=== PATIENT | male | born 1945 | race Caucasian/White ===

== ENCOUNTER 2019-12-27 13:47 | Outpatient (CLI) | payer MEDICARE, BC, SELFPAY ==
--- NOTE | 2019-12-27 13:57 | CT_ITS ---
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 TOTAL EXAM DLP: 773.[address] scans at [facility] use at least one of these dose optimization techniques: automat ed exposure control; mA and/or kV adjustment per patient size (includes targeted exams where dose is matched to clinical indication); or iterative reconstruction. FINDINGS: Chest was scanned 3 mm increments. Contrast was given The supraclavicular area was normal. The thyroid showed no masses. There is no lymphadenopathy seen. The pedicle on the right side at T1 appears to be questionable hypodense but no destructive changes a re noted. The aorta was normal no aneurysms are seen there is calcification of the azygos lymph node. There is calcification of the coronary arteries. The pulmonary arteries were normal bilaterally with no filling defects. The peripheral lung show normal perfusion no masses are seen. The liver appear to be normal. No infiltrating changes no metastatic foci. The gallbladder was normal. Both adrenal glands were normal. CT/CT chest w con* [id number] IMPRESSION: Normal CT of the chest The pedicle on the right at T1 shows loss of mineralization but no other eviden ce to suggest metastatic changes.
--- NOTE | 2019-12-27 13:57 | CT_ITS ---
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 FINDINGS: The tongue shows infiltrating process throughout the tongue. The right side appears to be m ore involvement in the left side in the involvement extends anteriorly also. The submental area was normal there is no lymphadenopathy noted. The paranasal sinuses on the right show a retention cyst. No destructive changes. No definite lymphadenopathy is seen in the maxilla or in the submandibular region. The parotid glands appear to be normal. No infiltrating changes. The submandibular area was normal with no invasive changes seen noted. The parapharyngeal and nasopharyngeal spaces were normal. The prevertebral spaces were normal. No definite lymphadenopathy is seen. The carotid spaces show no lymphadenopathy or invasive changes. The submaxillary glands were normal. The preglottic area and subglottic areas show no masses. The larynx was normal. The pre and post laryngeal spaces were normal with no infiltrating changes noted. The thyroid was normal. No lymphadenopathy surrounding the thyroid. The supraclavicular areas were normal. CT/CT neck w con* [id number] IMPRESSION: Inhomogenous configuration of the tongue probably representing infiltrating processes The remaining neck did not suggest lymphadenopathy are metastatic changes.
[2019-12-27 14:33] LABS: Blood Urea Nitrogen 19 mg/dL (8-23)
[2019-12-27] MEDS: iodixanol 320 mg/mL 100mL Btl IV ×2 (14:46→14:48)
== END 2019-12-27 13:48 | disposition home or self-care (01) ==
LOC: RAD 13:54
PROVIDERS: Visit Provider Radiology Radiation Oncology
DX: C01 Malignant neoplasm of base of tongue (principal)
CPT/HCPCS: 36415; 70491; 71260; 82565; 84520

== ENCOUNTER 2020-01-06 09:40 | Outpatient (CLI) | payer MEDICARE, BC, SELFPAY ==
--- NOTE | 2020-01-06 13:33 | ONCRAD EPV_ITS ---
Radiation Oncology Established Patient Visit Patient: Odilon MR#: [id number] : 1945> Age: 74> Sex: Male> Dictated by: Dr. 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 ID: [id number], Energy: 6X, Dose/Fx (cGy): 200, #Fx: 30 / 30, Dose Correction (cGy): 0, Total Dose (cGy): 6,000, Start Date: 06/26/2017, End Date: 08/08/2017, Elapsed Days: 43 Treatment Site: HN PTV70, Ref. ID: [id number], Energy: 6X, Dose/Fx (cGy): 200, #Fx: 5 / 5, Dose Correction (cGy): 0, Total Dose (cGy): 1,000, Start Date: 08/09/2017, End Date: 08/15/2017, Elapsed Days: 6 Chief Complaint / History of Present Illness: Mr. Uribe underwent chemoradiation for carcinoma of the base of tongue in late 2016 and early 2017. He has been doing well. He has full dentures and teeth have not been an issue. He has moderate dry mouth which he seems to tolerate well. He has minimal residual alteration of taste. He has no difficulty eating and he has no difficulty swallowing. In general he feels well with no change in his performance status. He has had no troublesome pulmonary symptoms or bone pain. Appetite is good. He has been having regular follow-up visits with Dr. Dominguez, but missed his last one due to the COVID-19 problem. He has had negative exams. The patient's says that he has had PET scans in [place] in follow-up. They have been negative. They could not give me the exact date of his last one. Current Medications: Aspirin, bisoprolol Fumarate, famotidine, flomax, folic Acid, gemfibrozil, lisinopril, multivitamin Adults, naprosyn, polyethylene Glycol 3350, proscar, traZODone HCl. Allergies: No Known Allergies Current Complaints / Review of Systems: Constitutional - Complains of mild fatigue. Denies fever and night sweats. Eyes - Complains of blurred vision occasionally. Denies double vision. ENMT - Complains of mouth dryness occasionally. Denies dysphagia, ear pain, stomatitis, altered taste and tinnitus. Neck - Denies neck pain. Integumentary - Denies rash. Cardiovascular - Denies arrhythmias, chest pain and edema. Respiratory - Complains of a mild cough which is chronic. Complains of dyspnea associated with normal activity. Denies hemoptysis and wheezing. Gastrointestinal - Complains of intermittent constipation. Complains of heartburn / dyspepsia. Denies abdominal pain, diarrhea, melena / GI bleeding, nausea and vomiting. Genitourinary (M) - Complains of nocturia gets up about 1 time per night and urgency. Denies dysuria and frequency. Musculoskeletal - Complains of joint pain generalized all over. Denies bone pain and muscle weakness. Neurologic - Denies dizziness and headaches. Endocrine - Denies diabetes and thyroid disease. Hematologic/Lymphatic - Denies tender or enlarged lymph nodes.. Vital Signs: Performed on 01/06/2020 10:18 AM BMI - 32.387 kg/m2 (high), Height - 68.00 in, Weight - 213.0 lbs, Temperature - 97.4 f, Pulse - 53, Respiration - 20, O2 Sat - 95 % (low), Pain - 0 and BP - 147/ 87 mm(hg)(high/). Physical Exam: General: Alert and oriented x 3. No acute distress. HEENT: Normocephalic, atraumatic. Extraocular Movements Intact: Oral cavity is clear without lesions, masses or ulcers. He is edentulous. Mucous membranes are moderately dry. The oropharynx is free of lesions. I did not have a mirror to examine the base of tongue but the anterior portion of the base of tongue was visible with tongue blade evaluation and was negative. The patient was very cooperative with digital exam and I closely palpated the entire base of tongue from side to side down to the vallecula and no mass, tenderness,unusual induration or irregularity was noted. NECK: Supple without supraclavicular or jugular lymphadenopathy. LUNGS: Clear to auscultation bilaterally without rales, rhonchi or wheeze. HEART: Regular rate and rhythm, normal S1 and S2 without murmur, gallop or rub. MUSCULOSKELETAL: No tenderness or percussion pain over the axial skeleton. ABDOMEN: Soft, nontender, nondistended without masses or organomegaly. Bowell sounds are present. Performance Status: KPS: 9/10 Lab: None pending. Pathology: Primary, d70.1 - agranulocytosis secondary to cancer chemotherapy, Diagnosed 08/01/2017 (active) and Primary, c01 - malignant neoplasm of base of tongue, Diagnosed 05/30/2017 (active) stage geovani, t2o, n2b, m0. Imaging: CT of the neck and chest were performed 12/27/2019. The chest is negative. I reviewed those images. The scan of the neck was interpreted as showing an infiltrative process in the base of tongue. No other abnormality was described. I reviewed the scan as well as his previous CTs and the PET that was performed at the time of diagnosis. I cannot see a significant change in the base of tongue myself. Impression: Based on the CT interpretation, Mr. Smith needs further evaluation for local recurrence. I requested that he see Dr. Dominguez. Mrs. Smith said that she would call to make the appointment. I told him another PET scan may be recommended. I requested that a disc of all our imaging at [facility] from the time of diagnosis through the current scans be sent to the hospital in [place] where he has his follow-up PET scans. Mrs. Smith requested that a copy of my note from today be mailed to her. We gave her copies of the recent CT reports today. Signed by: 01/06/2020 1:31:03 PM <<Signature on File>> Time spent with patient: CPT Code: CPT Code:
== END 2020-01-06 09:41 | disposition home or self-care (01) ==
LOC: ONCMED 09:44
PROVIDERS: PCP Family Medicine; Visit Provider Specialist
DX: C01 Malignant neoplasm of base of tongue (principal); D70.1 Agranulocytosis secondary to cancer chemotherapy; I10 Essential (primary) hypertension
CPT/HCPCS: 99213

== ENCOUNTER → 2020-07-14 07:58 | Outpatient (BNVA) | payer MEDICARE, BC, SELFPAY | PROVIDERS: PCP Family Medicine; Visit Provider Urology | DX: R97.20 Elevated prostate specific antigen [PSA] (principal); N13.8 Other obstructive and reflux uropathy; N40.1 Benign prostatic hyperplasia with lower urinary tract symptoms | CPT/HCPCS: 81003; 84153 ==

== ENCOUNTER 2021-02-18 18:55 | Emergency (ER) | payer MEDICARE, BC, SELFPAY ==
[2021-02-18 19:31] VITALS: BMI 32.6
--- NOTE | 2021-02-18 19:39 | XRR_ITS ---
PROCEDURE INFORMATION: Exam: XR Chest Exam date and time: 02/18/2021 7:39 PM Age: 75 years old Clinical indication: Cough and shortness of breath; Patient HX: Cough/sob. History of esophageal cancer. TECHNIQUE: Imaging protocol: XR of the chest. Views: 1 view. COMPARISON: CT chest w con* [id number] 12/27/2019 2:38 PM FINDINGS: Lungs: There are low lung volumes. Otherwise, the lungs are clear. Pleural spaces: Unremarkable. No pleural effusion. No pneumothorax. Heart/Mediastinum: Unremarkable. No cardiomegaly. Bones/joints: Unremarkable. XR/XR chest 1V portable [id number] IMPRESSION: There are low lung volumes. Otherwise, the lungs are clear.
[2021-02-19 00:32] VITALS: BP 184/95; PULSE 62; RESP 18; TEMP 36.9; O2SAT 96
[2021-02-19 01:13] LABS: SARS Covid-2 Antigen Positive (Negative)
--- NOTE | 2021-02-19 01:21 | W.ED.SOB ---
HPI - SOB/Dyspnea General: Chief Complaint: Shortness of Breath/Dyspnea Stated Complaint: COUGH/SOB Time Seen by Provider: 02/19/21 01:20 History of Present Illness: HPI Narrative: Patient is a 75-year-old male that comes to the ED with cough, nasal congestion and some shortness of breath. Symptoms started approximately 3 days ago. He describes his cough is dry nonproductive. He says he has mild shortness of breath but says that is a chronic thing and it has not gotten any worse. Denies any fever, abdominal pain, nausea/vomiting or diarrhea. Patient has gotten both Covid Moderna vaccinations. Associated symptoms: Deny abdominal pain, chest pain, fever(s), nausea, orthopnea, palpitations or vomiting Review of Systems Const: Denies: fever(s), chills or fatigue Eyes: Denies: change in vision or eye discomfort ENMT: Reports: nasal discharge and nasal congestion; Denies: throat pain or odynophagia Card: Denies: chest pain, palpitations, edema, swelling of feet/ankles, dyspnea on exertion or orthopnea Resp: Reports: dyspnea (chronic, no acute change) and non-productive cough; Denies: productive cough GI: Denies: abdominal pain, nausea, vomiting, diarrhea, constipation or hematochezia : Denies: flank pain, difficulty urinating, dysuria or hematuria Musc: Denies: neck pain, back pain or extremity swelling Skin/Breast: Denies: rash or new lesions Neuro: Denies: headache(s), numbness in extremities or weakness in extremities PFS ED PFSH: Medical History BPH loc w urin obs/LUTS Elevated PSA History of throat cancer Surgical History History of back surgery History of carpal tunnel release of both wrists History of varicose vein stripping Hx of appendectomy Hx of arthroscopy of right knee Hx of hemorrhoidectomy Family History Father , AT AGE 87 CAD (coronary artery disease) Mother , AT AGE 91 Cancer COLON Social History Smoking and tobacco status: never smoked Alcohol intake: never Marital status: Current occupational status: retired History of recent travel: No Physical Exam Const: COMMON NORMALS: no acute distress, patient oriented x3, healthy appearing and alert GENERAL APPEARANCE: cooperative and comfortable HENMT: COMMON NORMALS: normocephalic HEAD & SCALP: normocephalic MOUTH: Normal oral and palatal mucosa present THROAT: posterior oropharynx normal and uvula midline Neck/C-Spine: COMMON NORMALS: supple GENERAL: Yes normal visual inspection Resp: COMMON NORMALS: normal respiratory effort, No retractions, No use of accessory muscles and clear to auscultation bilaterally EFFORT & INSPECTION: Yes able to speak in complete sentences, No tachypneic, No respiratory distress and No labored AUSCULTATION: clear to auscultation bilaterally Cardio: COMMON NORMALS: regular rate, regular rhythm, S1 normal heart sound present, S2 normal heart sound present, No gallops present (Cardio), No clicks present (Cardio), No murmurs present (Cardio) and Peripheral pulses 2+ throughout RATE: regular rate RHYTHM: regular rhythm HEART SOUNDS: S1 normal heart sound present and S2 normal heart sound present PERIPHERAL PULSES: Peripheral pulses 2+ throughout GI: COMMON NORMALS: Normal to inspection, nondistended, normoactive bowel sounds present, Soft to palpation, non-tender and no masses PALPATION: Yes Soft to palpation : COMMON NORMALS: Yes no CVA tenderness BLADDER/KIDNEY EXAM: Yes no CVA tenderness Back/Pelvis: COMMON NORMALS: no CVA tenderness Extremity: COMMON NORMALS: normal to inspection Neuro: COMMON NORMALS: patient oriented x3 and moves all extremities SENSORIUM/ORIENTATION: Yes alert Skin: GENERAL SKIN EXAM: dry skin Course Vital Signs: Vital signs: Vital Signs Temperature 98.5 F 02/19/21 00:32 Pulse Rate 62 02/19/21 00:32 Respiratory Rate 18 02/19/21 00:32 Blood Pressure 184/95 02/19/21 00:32 Pulse Oximetry 96 02/19/21 00:32 MDM - SOB/Dyspnea MDM Narrative: Medical decision making narrative: Patient is a 75-year-old male comes to the ED with dry cough and nasal congestion drainage. Patient is fully vaccinated for COVID-19. He has some chronic shortness of breath but denies any acute change in shortness of breath. Vitals are stable patient's O2 saturation is 96% on room air and his respirations are 18. He appears in no acute respiratory distress and his lungs are clear to station bilaterally. COVID-19 test positive. Chest x-ray showed no acute lung findings and no lung consolidation seen. Patient would like to get the BAM infusion treatment and I had him sign the consent form while here in the ED. I placed an order with case management for patient to be set up for outpatient monoclonal antibody infusion treatment. Patient diagnosed with COVID-19 and discharged home. Return to ED precautions given. I told patient that binder caser will contact him to set up his JULIEN infusion appointment. Follow-up with PCP in 7 to 10 days for reevaluation. He was instructed on self quarantine procedure. Patient understood agree with plan. Lab Data: Attestation: I reviewed the patient's lab results. Labs: Lab Results 02/19/21 Range/Units 00:37 SARS-CoV-2 Ag (Rap id) Positive H (Negative) Imaging Data^: CXR: Attestation: I personally reviewed and interpreted this imaging study as follows: My impression: Chest x-ray showed no acute lung findings. Discharge Plan Discharge Patient Disposition: Home Clinical Impression: COVID-19 Condition: Stable Prescriptions: No Action levothyroxine 50 mcg capsule 50 mcg PO DAILY RF: 0 trazodone 150 mg tablet 150 mg PO DAILY RF: 0 tamsulosin 0.4 mg capsule 0.4 mg PO DAILY RF: 0 finasteride 5 mg tablet 5 mg PO DAILY RF: 0 bisoprolol fumarate 5 mg tablet 5 mg PO DAILY RF: 0 gemfibrozil 600 mg tablet 600 mg PO DAILY RF: 0 aspirin 81 mg tablet,delayed release (DR/EC) 81 mg PO DAILY RF: 0 folic acid 1 mg tablet 1 mg PO DAILY RF: 0 multivitamin Tablet 1 tab PO DAILY RF: 0 Discharge Orders: Discharge ED (Routine); Ordered 02/19/21 Ordered By: Jamal Reinoso Referrals: Reshma Feng MD [Primary Care Provider] - Discharge Diet: Regular Discharge Activity: Resume usual activity Patient Instructions: Viral Syndrome (ED) Activity Restrictions/Additional Instructions: Follow-up with medical provider as directed. Case management will be contacting you in the next several days to set up an appointment to get your monoclonal antibody infusion. Continue taking all home medications as previously prescribed. Drink plenty of fluids and stay hydrated and take [id number] Tylenol for any fevers. Return to the ER or your medical provider if condition worsens. Please read and understand discharge instructions. Thank you for choosing [facility] for your healthcare needs today. Please realize this is an emergency room and that we are providing you with a medical screening exam and this may not be complete and all inclusive of all the testing and or work up that you may need to determine your ailment or severity of your illness. It is very important that you follow up as instructed or that you return to the Emergency Department should you have concerns or if your condition changes or worsens in any way. Coding Level of Care Code ED Assistant Toddler Teacher for Bj Campuzano Exam Comprehensive
[2021-02-19 03:00] VITALS: BP 179/91; PULSE 63; RESP 18; O2SAT 96
--- NOTE | 2021-02-22 14:06 | DCPLANNER ---
land development project manager had message to schedule an outpatient monoclonal antibody infusion. land development project manager faxed order to centralized scheduling. land development project manager confirmed with [facility] that the order was received.
== END 2021-02-19 03:02 | disposition home or self-care (01) ==
PROVIDERS: Emergency Medicine; Emergency Provider Physician Assistant; PCP Family Medicine
DX: U07.1 COVID-19 (principal)
CPT/HCPCS: 71045; 87426; 99283

== ENCOUNTER 2021-02-23 07:55 | Outpatient (CLI) | payer MEDICARE, BC, SELFPAY ==
[2021-02-23 08:42] VITALS: BP 144/73; PULSE 58; RESP 14; TEMP 36.9; O2SAT 95
[2021-02-23 09:45] VITALS: BP 130/73; PULSE 55; RESP 16; TEMP 36.9; O2SAT 96
[2021-02-23 10:27] VITALS: BP 138/78; PULSE 56; RESP 16; TEMP 36.7; O2SAT 95
== END 2021-02-23 15:50 | disposition home or self-care (01) ==
PROVIDERS: PCP Family Medicine; Visit Provider Nurse Practitioner Family
DX: U07.1 COVID-19 (principal)
CPT/HCPCS: 96365

== ENCOUNTER 2021-08-13 06:00 | Outpatient (RCR) | payer OTHER, SELFPAY | END 2021-08-23 23:59 | disposition home or self-care (01) | LOC: TPT 06:00 | PROVIDERS: PCP Family Medicine; Referring Provider Physician Assistant; Visit Provider Physician Assistant | DX: M25.561 Pain in right knee (principal) | CPT/HCPCS: 97110; 97163 ==

== ENCOUNTER 2021-08-24 06:00 | Outpatient (RCR) | payer OTHER, SELFPAY | END 2021-09-20 23:59 | disposition home or self-care (01) | LOC: TPT 06:00 | PROVIDERS: PCP Family Medicine; Referring Provider Physician Assistant; Visit Provider Physician Assistant | DX: M25.551 Pain in right hip (principal) | CPT/HCPCS: 97110 ==

== ENCOUNTER 2021-09-21 06:00 | Outpatient (RCR) | payer OTHER, SELFPAY | END 2021-10-07 23:59 | disposition home or self-care (01) | LOC: TPT 06:00 | PROVIDERS: PCP Family Medicine; Referring Provider Physician Assistant; Visit Provider Physician Assistant | DX: M25.561 Pain in right knee (principal) | CPT/HCPCS: 97110 ==

== ENCOUNTER → 2021-11-02 14:04 | Outpatient (BNVA) | payer OTHER, SELFPAY | PROVIDERS: PCP Family Medicine; Referring Provider Physician Assistant; Visit Provider Orthopaedic Surgery | DX: M17.11 Unilateral primary osteoarthritis, right knee (principal) | CPT/HCPCS: 73560; 73565; 99203; 99204 ==

== ENCOUNTER → 2021-11-09 11:50 | Day surgery (SDC) | payer OTHER, SELFPAY | PROVIDERS: PCP Family Medicine; Visit Provider Orthopaedic Surgery | DX: Z01.818 Encounter for other preprocedural examination (principal) | CPT/HCPCS: 93005 ==

== ENCOUNTER 2021-11-15 09:09 | Observation (INO) | payer OTHER, SELFPAY ==
[2021-11-09 11:47] VITALS: BMI 32.6
--- NOTE | 2021-11-09 11:50 | ECG_ITS ---
[facility] Test Date: 2021-11-09 Pat Name: Bryan Smith Department: Room: Gender: Male Feed Research Aide: : 1945 Requested By: Laron Dhaliwal Order Number: [id number] Kai MD: Joseluis Gomez M.D. Measurements Intervals [place] Rate: 44 P: 71 NV: 230 QRS: 19 QRSD: 93 T: 64 QT: 429 QTc: 368 Interpretive Statements SINUS BRADYCARDIA WITH MARKED SINUS ARRHYTHMIA WITH FIRST DEGREE AV BLOCK No previous ECG available for comparison Electronically Signed On 11-10-2021 22:35:43 CDT by Joseluis Gomez M.D. [id number]
--- NOTE | 2021-11-09 13:41 | ANES.PREANE2 ---
Pre-Anesthetic Assessment Height/Weight: Height 1.73 m Weight 97.522 kg Operation Date: 11/15/21 07:00 Proposed Procedures p Right Total Knee Arthroplasty 59576/m17.11(Right) - Mitchell Glynn MD Familial anesthetic complications: None Was Beta Nara taken within 24 hours: Yes Was Clonidine taken within 24 hours: N/A Social No alcohol and No tobacco Exam alert, oriented x 3, clear to auscultation bilaterally and regular rate & rhythm Airway Submandibular: within normal limits Cervical ROM: within normal limits Mallampati: Class II Dentition: false CV/HEM Hypertension and Murmur GI Gastroesophageal Reflux Disease Metabolic Thyroid Disease Anesthetic Plan ASA status: 3 Anesthesia: Regional (specify below) (SAB with adductor blk) Medications/Allergies Home Medications Medication Instructions Recorded Confirmed Last Taken Type aspirin 81 mg tablet,delayed 81 mg PO DAILY 07/14/20 11/09/21 11/03/21 History release bisoprolol fumarate 5 mg tablet 10 mg PO DAILY 07/14/20 11/09/21 11/09/21 07:00 History finasteride 5 mg tablet (Proscar) 5 mg PO DAILY 07/14/20 11/09/21 11/08/21 20:00 History folic acid 1 mg tablet 1 mg PO DAILY 07/14/20 11/09/21 11/09/21 07:00 History gemfibrozil 600 mg tablet (Lopid) 600 mg PO DAILY 07/14/20 11/09/21 11/09/21 07:00 History multivitamin 1 tab PO DAILY 07/14/20 11/09/21 11/09/21 07:00 History tamsulosin 0.4 mg capsule 0.4 mg PO DAILY 07/14/20 11/09/21 11/08/21 20:00 History trazodone 150 mg tablet 150 mg PO DAILY 07/14/20 11/09/21 11/08/21 20:00 History levothyroxine 50 mcg capsule 75 mcg PO DAILY cap 02/19/21 11/09/21 11/09/21 07:00 History gabapentin 600 mg tablet 600 mg PO BID 11/09/21 11/09/21 11/09/21 07:00 History naproxen 500 mg PO PRN 11/09/21 11/09/21 11/05/21 History Allergies Allergy/AdvReac Type Severity Reaction Status Date / Time No Known Allergies Allergy Verified 11/02/21 14:34 PENDING SALE TO [facility] Anesthesia Medical History BPH loc w urin obs/LUTS Elevated PSA History of throat cancer Surgical History History of back surgery History of carpal tunnel release of both wrists History of varicose vein stripping Hx of appendectomy Hx of arthroscopy of right knee Hx of hemorrhoidectomy Family History Father , AT AGE 87 CAD (coronary artery disease) Mother , AT AGE 91 Cancer COLON Social History Smoking and tobacco status: never smoked Alcohol intake: never Marital status: Current occupational status: retired History of recent travel: No Data Anesthesia Cardiac Studies: No Data to Display
[2021-11-15] VITALS (19 sets, daily range): BP systolic 81–155; BP diastolic 44–88; PULSE 65–90; RESP 14–20; TEMP 36.2–36.9; O2SAT 90–99
[2021-11-15] MEDS: oxyCODONE 20 mg ER (12 HR) Tablet PO (05:54)
[2021-11-15] MEDS: CELEcoxib 200 mg Capsule 400 MG PO (05:55)
[2021-11-15] MEDS: gabapentin 300 mg Capsule PO (05:55)
[2021-11-15] MEDS: acetaminophen 500 mg Tablet 1000 MG PO ×3 (05:55→21:04)
[2021-11-15] MEDS: sodium chloride 0.9% 1,000 ML 30 ML IV (05:57)
--- NOTE | 2021-11-15 06:51 | P.ANESUD_ITS ---
Pre-Anesthetic Update Pre-Anesthetic Assessment: Date of Surgery/Procedure: 11/15/21 Preop Chelle gnosis: Osteoarthritis Right knee Proposed Procedure: Operation Date: 11/15/21 07:00 Proposed Procedures p Right Total Knee Arthroplasty 53569/m17.11(Right) - Mitchell Glynn MD Any changes to Pre-Anesthetic Assessment?: No Last Intake: Intake Last Liquid Date 11/14/21 Last Liquid Time 19:30 Last Solid Date 11/14/21 Last Solid Time 19:30 Vitals: Temperature 97.7 F 11/15/21 05:41 Temperature Source Temporal Artery S can 11/15/21 05:41 Pulse Rate 65 11/15/21 05:41 Pulse Rhythm 11/15/21 05:41 Pulse Strength 3+ Normal 11/15/21 05:41 Respiratory Rate 18 11/15/21 05:41 Blood Pressure 155/82 11/15/21 05:41 Blood Pressure Lela n 106 11/15/21 05:41 Pulse Oximetry 95 11/15/21 05:41 Oxygen Delivery Me thod 11/15/21 05:41 Exam: Pre-Anes Outpt Exam: alert, oriented x 3, clear to auscultation bi laterally and regular rate & rhythm Cardiac Studies: No Data to Display
--- NOTE | 2021-11-15 06:51 | ANES.PROC ---
Anesthesia Procedures Procedure/Date: 11/15/21 Nerve Block ^: Nerve Block 1: Main Anesthesia: spinal anesthesia block Time Out Performed: Yes Consent: requested by attending/covering physician, from patient, from other, risks and benefits reviewed and patient agrees to proceed Nerve block location: adductor canal (R) Anesthesia monitors applied: pulse oximetry, EKG, BP cuff and oxygen Nerve block position: supine Anesthetic Used: ropivicaine 0.5% (30) and with decadron (4 mg) Nerve Stimulator Used?: No Interscalene/Femoral BLK: 4 stimuplex 21 g needle used for position and inplane approach, visualize local anesthetic spread and no vascular puncture identified Injection: neg aspiration of heme and paresthesia +/- Patient Tolerated Procedure: well and no complications Complications: none
--- NOTE | 2021-11-15 07:02 | W.PM.OPSFHP ---
Same Day Surgery H&P Indication for Procedure/HPI DATE OF PROCEDURE: November 15, 2021 CHIEF COMPLAINT/INDICATIONFOR SURGICAL PROCEDURE: Osteoarthritis right knee here for right total knee arthroplasty PREOP DIAGNOSIS: Osteoarthritis Right knee PLANNED PROCEDURE: Operation Date: 11/15/21 07:00 Proposed Procedures p Right Total Knee Arthroplasty 86206/m17.11(Right) - Mitchell Glynn MD 75-year has failed oral anti-inflammatories multiple arthroscopies. Persistent pain and functional limitations. Here for right total knee arthroplasty Medications/Allergies* Home Medications Medication Instructions Recorded Confirmed Type aspirin 81 mg tablet,delayed 81 mg PO DAILY 07/14/20 11/09/21 History release bisoprolol fumarate 5 mg tablet 10 mg PO DAILY 07/14/20 11/09/21 History finasteride 5 mg tablet (Proscar) 5 mg PO DAILY 07/14/20 11/09/21 History folic acid 1 mg tablet 1 mg PO DAILY 07/14/20 11/09/21 History gemfibrozil 600 mg tablet (Lopid) 600 mg PO DAILY 07/14/20 11/09/21 History multivitamin 1 tab PO DAILY 07/14/20 11/09/21 History tamsulosin 0.4 mg capsule 0.4 mg PO DAILY 07/14/20 11/09/21 History trazodone 150 mg tablet 150 mg PO DAILY 07/14/20 11/09/21 History levothyroxine 50 mcg capsule 75 mcg PO DAILY cap 02/19/21 11/09/21 History gabapentin 600 mg tablet 600 mg PO BID 11/09/21 11/09/21 History naproxen 500 mg PO PRN 11/09/21 11/09/21 History Allergies/Adverse Reactions Allergy/AdvReac Type Severity Reaction Status Date / Time No Known Allergies Allergy Verified 11/02/21 14:34 Current Medications: Generic Name Dose Route Start Last Admin Trade Name Freq PRN Reason Stop Dose Admin Sodium Chloride 1,000 mls @ 30 mls/hr 11/15/21 05:45 11/15/21 05:57 Sodium Chloride 0.9% IV 11/16/21 05:44 30 mls/hr .Q24H KITTY Administration Pertinent History/Comorbid Conditions* Medical History (Updated 02/19/21 @ 02:23 by MONISHA Sethi) BPH loc w urin obs/LUTS Elevated PSA History of throat cancer Surgical History (Updated 07/14/20 @ 08:32 by Ann Leal APRN) History of back surgery History of carpal tunnel release of both wrists History of varicose vein stripping Hx of appendectomy Hx of arthroscopy of right knee Hx of hemorrhoidectomy Family History (Updated 07/06/20 @ 12:15 by Viola Miguel, NGOC) Father, AT AGE 87 Mother, AT AGE 91 CAD (coronary artery disease) Father Cancer Mother COLON Social History Smoking and tobacco status: never smoked Alcohol intake: never Marital status: Current occupational status: retired History of recent travel: No Pertinent Exam Findings alert, oriented x 3, clear to auscultation bilaterally, regular rate & rhythm and operative site marked Recommendations Surgery/Procedure today Coding Level of Care Code Acute Outdoor Guide for Bj Campuzano
[2021-11-15] MEDS: tranexamic acid 1,000 mg/10mL SDV 1000 MG IV (07:30)
[2021-11-15] MEDS: EPINEPHrine 1 mg/mL INJ XX (07:48)
[2021-11-15] MEDS: tranexamic acid 1,000 mg/10mL SDV 1000 MG XX (07:49)
[2021-11-15] MEDS: ketorolac 30 mg/mL INJ XX (07:49)
--- NOTE | 2021-11-15 09:01 | XR_ITS ---
WS: [id number] Right knee, AP and lateral views, 11/15/2021 Clinical Data: verify needle tip not in knee Comparison: AP both knees, 11/02/2021. Findings: The right knee arthroplasty is in good position. There is air in the joint space from surgery. XR/XR knee RT 1-2V 42497 Impression: Right knee arthroplasty.
--- NOTE | 2021-11-15 09:05 | P.OP_ITS ---
Operative Report Date of procedure: November 15, 2021 Pre-op diagnosis: Preop Diagnosis Osteoarthritis Right knee Post-op diagnosis: same Post-op diagnosis: Same Post-op findings: Same Procedure done: Right total knee arthroplasty Implants: Elías total knee arthroplasty components were used includin) Size 6 triathalon cruciate retaining femoral component 2) Size 7 Tritanium tibial component 3) 38 mm /11 mm thickness Tritanium asymetric patella 4) Size 7/9 mm thickness CR tibial bearing insert Pathology: none sent Surgeon: Mitchell Glynn Anesthesia: Nerve Block (Spinal, adductor canal block) Estimated blood loss (mL): 100 Findings: Bryan Adams had eburnated bone over his medial femoral condyle medial tibial plateau and patella Condition: stable Disposition: PACU Procedure: The patient was taken to the operating room. Patient was given 1 g of tranexamic acid . The above anesthesia provided by the anesthesia service. A timeout was performed. The patient was prepped and draped in the usual fashion with the lower extremity exposed. A anterior incision was made, midline, from a point proximal to the patella to the distal tibial tubercle. The knee was entered through a medial parapatellar approach. The patella could be displaced laterally and the knee flexed. The patellar fat pad was resected to provide better visibility. Retractors were placed medially and laterally adjacent to the tibial plateau. The femoral canal was drilled in line with the longitudinal axis of the femur. Intramedullary femoral guide for used to make a distal femoral cut in 5 degrees of valgus, resecting 8 mm from the more prominent condyle. Next the extra medullary tibial guide was placed in alignment with the longitudinal axis of the tibia. The cutting guides were set to remove just over 9 mm from the high tibial plateau. The proximal tibia was then cut. The femoral measuring guide was then placed over the distal femur. Rotation was verified checking the relationship of the guide to the condyle and the trochlear groove. The femur was measured and cut for the desired femoral component. The desired tibial baseplate was then chosen. A trial reduction with the femur tibial baseplate and polyethylene was done, assuring that the knee was stable throughout full motion. Ligament balancing involved nothing more than released the deep medial collateral ligament.The tibia was prepared for the tibial baseplate. Patellar thickness was then measured. The patella was cut removing articular cartilage and prepared for appropriate size patellar button. surfaces were cleaned with a gentamicin solution. The femur tibia and patella were then press- fit into place. The posterior capsule and collateral ligaments were then injected with a solution of 100 mL of 0.2% ropivacaine, 1 mL of a 1:1000 epinephrine solution, 30 mg of Toradol, and 1 g of tranexamic acid. Final polyethylene component was then snapped into place into the tibia. The extensor retinaculum was closed with a running 1 Stratafix interrupted 1 Ethibond. The subcutaneous tissues were closed with 2-0 Vicryl and the skin was closed with a running 4-0 Stratafix. The wound was covered with a Dermabond Prineo dressing. It was covered with 4xrs and a compressive Tubigauze was applied. The patient was taken to recovery room in stable condition.
--- NOTE | 2021-11-15 09:37 | SUR.PHASEI ---
0921 foot pump to left foot. pump on and working
[2021-11-15] MEDS: sodium chloride 0.9% 1,000 ML 100 ML IV ×2 (10:55→21:03)
--- NOTE | 2021-11-15 14:44 | ANE.PACU2 ---
Inpatient post-anesthesia follow up: Airway intact: Yes Vital signs: Temperature 97.5 F Pulse Rate 81 Respiratory Rate 16 Blood Pressure 121/63 Pulse Oximetry 95 Oxygen Delivery Me thod Nasal Cannula Oxygen Flow Rate 2 Fraction of Inspir ed Oxygen Hydration adequate: Yes Nausea and vomiting: No Pain level: 2 Mental status: Baseline
--- NOTE | 2021-11-15 17:20 | PM.PN ---
Subjective Subjective: Minimal pain. Good p.o. intake Vitals/I&O/Wt Last Vital Signs Temp 97.5 F L 11/15/21 13:10 Pulse 81 11/15/21 13:10 Resp 16 11/15/21 13:10 BP 121/63 11/15/21 13:10 Pulse Ox 95 11/15/21 13:10 11/15/21 11/15/21 11/15/21 06:59 14:59 22:59 Intake Total 2940 / 2940 Output Total 200 / 200 Balance 2740 / 2740 Weight last 48 hrs Weight 215 lb Physical Exam Narrative: Right knee dressing clean and dry. Will fire tibialis anterior and toe extensors but unable to dorsiflex against gravity Urinary Catheter Management: Nguyễn: Cath Placed During This Visit: yes Urinary Catheter Date of Insertion: 11/15/21 Urinary Catheter Time of Insertion: 07:20 A&P Assessment and plan (1) Status post right knee replacement: Continue to mobilize with therapy Status: Acute (2) Right peroneal nerve palsy: Patient has a previous history of foot drop after wearing a tight knee pad. I instructed him to avoid compression about knee. I anticipate this should improve as it did in the past. Status: Acute Attestations Medical Necessity Statement*: Anticipate discharge in am. Coding Level of Care Code Acute Lens Block Gauger for Bj Campuzano Diagnoses Status post right knee replacement Z96.651 Right peroneal nerve palsy G57.31
[2021-11-15] MEDS: gabapentin 300 mg Capsule 600 MG PO (17:45)
[2021-11-15] MEDS: CELEcoxib 200 mg Capsule PO (17:45)
[2021-11-15] MEDS: oxyCODONE 5 mg IR Tab/Cap PO (23:33)
[2021-11-16] VITALS: BP 129/69; PULSE 83; RESP 17; TEMP 37.1; O2SAT 91
[2021-11-16 02:46] LABS: Hemoglobin 11.6 g/dL (11.7-16.6)
[2021-11-16 04:00] VITALS: BP 130/71; PULSE 78; RESP 16; TEMP 36.8; O2SAT 94
[2021-11-16] MEDS: acetaminophen 500 mg Tablet 1000 MG PO (05:54)
[2021-11-16] MEDS: CELEcoxib 200 mg Capsule PO (05:54)
[2021-11-16 06:29] VITALS: RESP 16
[2021-11-16] MEDS: oxyCODONE 5 mg IR Tab/Cap PO ×2 (06:29→10:05)
[2021-11-16 07:16] VITALS: BP 166/92; PULSE 72; RESP 18; TEMP 37; O2SAT 95
--- NOTE | 2021-11-16 07:44 | PM.DCS ---
Discharge Providers Date of Admission: 11/15/21 09:09 Date of Discharge: November 16, 2021 Attending Provider at Admission: Mitchell Boyer MD Attending Provider at Discharge: Mitchell Boyer MD Primary Care Provider: Reshma Feng MD Diagnoses at Discharge Discharge Diagnosis (1) Status post right knee replacement: Status: Acute (2) Right peroneal nerve palsy: Status: Resolved (3) Degenerative arthritis of right knee: Status: Resolved Reason for Visit Reason for Visit: primary osteoarthritis of right knee Hospital Course Hospital Course The patient tolerated surgery well. They remained hemodynamically stable. They was begun on aspirin and comes for DVT prophylaxis. The patient was mobilized with therapy beginning the day of surgery and by the first postoperative day independent with the walker. The evening of the operation and he was noted to have weakness in the peroneal nerve distribution but by the following day of this and returned to normal. As the pain was adequately controlled and they were fully mobile they were discharged home. Physical Exam Narrative: On the day of discharge the knee incision was clean. They had no drainage. There is minimal swelling in the thigh and knee and the calf. No distal neurovascular deficits were noted Urinary Catheter Management: Nguyễn: Cath Placed During This Visit: yes, but has since been removed by the nurse Reason for Continuing Indwelling Catheter: Perioperative Use in Selected Surgeries Urinary Catheter Date of Insertion: 11/15/21 Urinary Catheter Time of Insertion: 07:20 Date Urinary Catheter Removed: 11/16/21 Time Urinary Catheter Discontinued: 05:50 Discharge Data Studies Completed and Pending Completed Studies During Hospitalization Category Date Time Status XR knee RT 1-2V 47104 Urgent Exams 11/15/21 09:01 Completed Radiology Impressions Knee X-Ray 11/15/21 09:01 Impression: Right knee arthroplasty. Laboratory Results Hgb 11.6 g/dL (11.7-16.6) L 11/16/21 02:29 Vitals Last Vital Signs Temp 98.6 F 11/16/21 07:16 Pulse 72 11/16/21 07:16 Resp 18 11/16/21 07:16 BP 166/92 11/16/21 07:16 Pulse Ox 95 11/16/21 07:16 Discharge Plan Discharge Patient Disposition: Home Condition: Stable Prescriptions: New oxycodone 5 mg Tablet 5 mg PO Q4H PRN (Reason: Moderate Pain) 7 Days Qty: 30 0RF acetaminophen 500 mg Tablet 1,000 mg PO Q8H 14 Days Qty: 84 0RF celecoxib 200 mg Capsule 200 mg PO Q12H 14 Days Qty: 28 0RF Continued trazodone 150 mg tablet 150 mg PO DAILY 0RF tamsulosin 0.4 mg capsule 0.4 mg PO DAILY 0RF finasteride [Proscar] 5 mg tablet 5 mg PO DAILY 0RF bisoprolol fumarate 5 mg tablet 10 mg PO DAILY 0RF gemfibrozil [Lopid] 600 mg tablet 600 mg PO DAILY 0RF aspirin 81 mg tablet,delayed release (DR/EC) 81 mg PO DAILY 0RF folic acid 1 mg tablet 1 mg PO DAILY 0RF multivitamin Tablet 1 tab PO DAILY 0RF levothyroxine 50 mcg capsule 75 mcg PO DAILY 0RF gabapentin 600 mg Tablet 600 mg PO BID 0RF Discontinued naproxen 500 mg PO PRN 0RF Discharge Orders: Discharge Order (Routine); Ordered 11/16/21 Ordered By: Mitchell Boyer Other Ambulatory Orders: DME: David (Order) Location: None Selected Ordered By: Mitchell Boyer Referrals: Mitchell Boyer MD [Physician] - 11/19/21 8:00 am Discharge Diet: Advance as tolerated Discharge Activity: Limit activity as instructed Patient Instructions: Opioid Safety Activity Restrictions/Additional Instructions: Okay to shower Keep Tubigauze sleeve in place for swelling. Okay to remove for hygiene. Apply FirstIce up to 20 min/hr for pain and swelling Take Celebrex twice a day for the next 15 days for pain , discontinue other anti-inflammatories Take Tylenol 500mg (2 tabs) as needed 3 times a day for mild pain take oxycodone for breakthrough pain. Exercises per physical therapy. May weight-bear as tolerated on total knee arthroplasty IF HAVE ANY PROBLEMS OR QUESTIONS CALL [facility] TECH AT AND ASK TO HAVE DR. BOYER PAGED. Discharge Attestations Time Spent in Discharge Care*: other Quality Metrics Clinical Quality Measures [ No reported AMI, CVA or VTE this stay] Coding Level of Care Code Acute g FW [place] note Diagnoses Status post right knee replacement Z96.651 Right peroneal nerve palsy G57.31 Degenerative arthritis of right knee M17.11
--- NOTE | 2021-11-16 08:46 | PC.CHAP ---
Pastoral Care Encounter/Spiritual Assessment Type of Contact [] Declined machine etcher visit [] Patient/Family/Request visit [] Outpatient visit [] Follow-up visit [] Physician referral [] Code/Alert [x] Routine visit [] Staff referral [] Actively dying [] Patient sleeping [] Family support [] [] Out of room [] Palliative care [] [] Receiving care in room [] Pre-surgical visit [] Trauma [] Long length of stay [] ICU visit [] Other: Relational/Emotional Strength [x] Patient feels connected with others/family/visitors/staff [] Distress [] Loneliness/isolation [] Abandonment Spirituality of Patient [x] Person of Prerna [x] Attends Gnosticist of their Prerna [x] Believes in Prayer [] Reads Bible or Sabianist materials [] There are Spiritual issues to be addressed Grain Receiver Interventions [] Prayer [x] Active listening [x] Non-anxious presence [x] Spiritual/emotional support [] Crisis/trauma care [] Spiritual counseling [] Bereavement support [] Provided bereavement packet [] Provided Bible/devotional materials [] Provided toy/stuffed animal, coloring book to patient or family member [] Provided Communion [] Anointing/[place] [] Salvation [x] Completed spiritual assessment [] Other: Impact on Illness or Injury [] Angry [] Fearful [] Anxious [] Often cries [] Exhaustion [] Unable to work [] Unable to attend faith [] Unable to walk/stand [] Unable to read [] Unable to drive [] Unable to eat/drink [] Unable to sleep [] Unable to be with family [] Patient intubated [] Other: Summary Pt is expecting to be released in the next hour or so. He had surgery yesterday and is being discharged today. He resides in [facility]. While visiting with him, his called. She was leaving home to come to hospital to pick him up. Time spent with patient 10m
[2021-11-16] MEDS: gemfibrozil 600 mg Tablet PO (09:19)
[2021-11-16] MEDS: gabapentin 300 mg Capsule 600 MG PO (09:19)
[2021-11-16] MEDS: tamsulosin 0.4 mg Capsule PO (09:19)
[2021-11-16] MEDS: aspirin 81 mg EC Tablet PO (09:19)
[2021-11-16] MEDS: finasteride 5 mg Tablet PO (09:19)
[2021-11-16] MEDS: multivitamin therapeutic Tablet 1 TAB PO (09:19)
[2021-11-16] MEDS: folic acid 1 mg Tablet PO (09:19)
--- NOTE | 2021-11-16 09:51 | PC.OT ---
OT EVALUATION ORDERS RECEIVED. PATIENT DRESSED HIMSELF INDEPENDENTLY THIS MORNING. NO FURTHER SKILLED OT REQUIRED AT THIS TIME.
[2021-11-16 10:05] VITALS: RESP 18; O2SAT 95
--- NOTE | 2021-11-16 10:07 | PC.NURSE ---
PT HAS DONE WELL THIS MORNING. PT IS DOING WELL WITH PHYSICAL THERAPY. HE IS AMBULATING WELL WITH THE WALKER. MORNING MEDICATIONS HAVE BEEN GIVEN TO PT. DISCHARGE PAPERWORK GONE OVER WITH PT. ALL QUESTIONS ANSWERED. PRESCRIPTIONS SENT TO PHARMACY OF PTS CHOICE. THEY ARE READY TO BE PICKED UP. IV REMOVED. CATHETER TIP INTACT. PT TOLERATED WELL. WE ARE JUST WAITING FOR THE WALKER TO ARRIVE FOR PT SO HE CAN GO HOME. WILL CONTINUE TO MONITOR PT.
[2021-11-16 11:12] VITALS: RESP 18; O2SAT 95
== END 2021-11-16 11:12 | disposition home health service (06) ==
LOC: MEDSURG 13:39
PROVIDERS: Admitting Provider Orthopaedic Surgery; PCP Family Medicine; Visit Provider Orthopaedic Surgery
PROC: (CPT 27447; principal; 2021-11-15 07:00)
DX: M17.11 Unilateral primary osteoarthritis, right knee (principal); G57.31 Lesion of lateral popliteal nerve, right lower limb; Z79.82 Long term (current) use of aspirin; N40.1 Benign prostatic hyperplasia with lower urinary tract symptoms; N13.8 Other obstructive and reflux uropathy; Z85.9 Personal history of malignant neoplasm, unspecified; Z82.49 Family history of ischemic heart disease and other diseases of the circulatory system; K21.9 Gastro-esophageal reflux disease without esophagitis; I10 Essential (primary) hypertension
CPT/HCPCS: 27447; 36415; 51702; 64447; 73560; 76942; 85018; 97110; 97116; 97161; C1776; G0378; J0171; J0690; J1100; J1580; J1885; J2250; J2370; J2704; J2795; J7030

== ENCOUNTER → 2021-12-17 07:56 | Outpatient (BNVA) | payer OTHER, SELFPAY | PROVIDERS: PCP Family Medicine; Visit Provider Orthopaedic Surgery | DX: Z96.651 Presence of right artificial knee joint (principal); M17.11 Unilateral primary osteoarthritis, right knee | CPT/HCPCS: 73560; 73565 ==

== ENCOUNTER 2022-05-19 09:28 | Outpatient (CLI) | payer OTHER, SELFPAY ==
[2022-05-19 10:35] LABS: Free T4 Free Thyroxine 1.09 ng/dL (0.82-1.77); T3 Free 2.5 PG/ML (2.0-4.4)
== END 2022-05-19 09:29 | disposition home or self-care (01) ==
LOC: LAB 09:36
PROVIDERS: PCP Family Medicine; Visit Provider Chiropractor
DX: E03.9 Hypothyroidism, unspecified (principal)
CPT/HCPCS: 84439; 84443; 84481

== ENCOUNTER → 2022-06-22 09:20 | Outpatient (BNVA) | payer OTHER, SELFPAY | PROVIDERS: PCP Family Medicine; Referring Provider Physician Assistant; Visit Provider Orthopaedic Surgery | DX: M25.569 Pain in unspecified knee (principal) | CPT/HCPCS: 73560; 73565; 99213 ==

== ENCOUNTER 2022-06-27 10:38 | Emergency (ER) | payer OTHER, SELFPAY ==
[2022-06-27 10:45] VITALS: BP 169/95; PULSE 62; RESP 18; TEMP 36.8; O2SAT 93
--- NOTE | 2022-06-27 10:52 | XR_ITS ---
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 There is pr ominent osteoarthritis at the first carpometacarpal joint with subchondral cysts and subluxation. Fle xion deformities of osteoarthritis are present at the second and third DIP joints. Subchondral sclero tic changes are present with prominent narrowing of the radiocarpal and ulnocarpal joint.
--- NOTE | 2022-06-27 11:21 | ED_ITS ---
Documented by User: MONISHA Sethi 06/27/22 16:18 HPI - Wound/Laceration General: Chief Complaint: Wound/Laceration Stated Complaint: Left thumb lac Time Seen by Provider: 06/27/22 10:50 History of Present Illness: Patient is a 76-year-old male comes to the ED with left thumb injury. Patient was using a table saw just prior to arrival and accidentally cut off the distal end of left thumb. He immediately wrapped thumb and bandage to try to help control bleeding and came here to the ED for evaluation. Patient unsure of last tetanus shot. Associated symptoms: Denies chills, fever(s), nausea or vomiting Review of Systems Const: Denies: fever(s), chills or fatigue Eyes: Denies: change in vision or eye discomfort ENMT: Denies: throat pain, odynophagia, nasal discharge or nasal congestion Card: Denies: chest pain, palpitations, edema, swelling of feet/ankles, dyspnea on exertion or orthopnea Resp: Denies: dyspnea, productive cough or non-productive cough GI: Denies: abdominal pain, nausea, vomiting, diarrhea, constipation or hematochezia : Denies: flank pain, difficulty urinating, dysuria or hematuria Musc: Reports: extremity pain (left thumb distal tip amputation); Denies: neck pain, back pain or extremity swelling Skin/Breast: Denies: rash or new lesions Neuro: Denies: headache(s), numbness in extremities or weakness in extremities PFS ED PFSH: Medical History BPH loc w urin obs/LUTS Elevated PSA History of throat cancer Surgical History History of back surgery History of carpal tunnel release of both wrists History of varicose vein stripping Hx of appendectomy Hx of arthroscopy of right knee Hx of hemorrhoidectomy Family History Father , AT AGE 87 CAD (coronary artery disease) Mother , AT AGE 91 Cancer COLON Social History Smoking and tobacco status: never smoked Alcohol intake: never Marital status: Current occupational status: retired History of recent travel: No Physical Exam Const: COMMON NORMALS: patient oriented x3 and alert GENERAL APPEARANCE: cooperative HENMT: COMMON NORMALS: normocephalic HEAD & SCALP: normocephalic MOUTH: Normal oral and palatal mucosa present THROAT: posterior oropharynx normal and uvula midline Neck/C-Spine: COMMON NORMALS: supple GENERAL: Yes normal visual inspection Resp: COMMON NORMALS: normal respiratory effort, No retractions, No use of accessory muscles and clear to auscultation bilaterally AUSCULTATION: clear to auscultation bilaterally Cardio: COMMON NORMALS: regular rate, regular rhythm, S1 normal heart sound present, S2 normal heart sound present, No gallops present (Cardio), No clicks present (Cardio), No murmurs present (Cardio) and Peripheral pulses 2+ throughout RATE: regular rate RHYTHM: regular rhythm HEART SOUNDS: S1 normal heart sound present and S2 normal heart sound present PERIPHERAL PULSES: Peripheral pulses 2+ throughout GI: COMMON NORMALS: Normal to inspection, nondistended, normoactive bowel sounds present, Soft to palpation, non-tender and no masses PALPATION: Yes Soft to palpation : COMMON NORMALS: Yes no CVA tenderness BLADDER/KIDNEY EXAM: Yes no CVA tenderness Back/Pelvis: COMMON NORMALS: no CVA tenderness Extremity: NARRATIVE EXTREMITY EXAM: Left hand?thumb?distal end amputation. Over half of nail bed was involved and amputated. No visible bone sticking out. Neuro: COMMON NORMALS: patient oriented x3 SENSORIUM/ORIENTATION: Yes alert GAIT: Yes Normal gait present Skin: GENERAL SKIN EXAM: dry skin Procedures Nerve Block Nerve Block 1: Time out performed: Yes Local Anesthetic: bupivacaine 0.5% Amount of anesthesia used (mL): 5 Side: left Nerve Blocks: digital (thumb) Procedure Successful: Yes Patient Tolerated Procedure: well Complications: none Course Vital Signs: Vital signs: Vital Signs Temperature 98.3 F 06/27/22 12:19 Pulse Rate 62 06/27/22 12:19 Respiratory Rate 18 06/27/22 12:19 Blood Pressure 169/95 06/27/22 12:19 Pulse Oximetry 93 06/27/22 12:19 MDM - Wound/Laceration Medical Decision Making Patient is a 76-year-old male comes to the ED with injury to left thumb. Patient has an amputation of the distal aspect of left thumb. Amputation involves over half of nail bed area. No visible bone sticking out are seen. Patient was given updated tetanus here in the ED. Left hand x-ray showed amputation of distal thumb involving the mid distal phalanx. Digital block was performed on thumb with bupivacaine and the nurse then irrigated thumb and wound extensively with normal saline and beta iodine. A Vaseline gauze was placed over wound that was bandaged up as well. Patient was given a dose of IV Ancef here in the ED. I placed order with case management for patient be referred to Ortho for follow-up. I told patient to call Dr. Glynn's office tomorrow morning to set up an appointment to be evaluated in the next 1 to 2 days. Return ED precautions given. Patient was discharged home with some hydrocodone and Keflex. Patient understood and agreed with plan. Lab Data I reviewed the patient's lab results. 06/27/22 11:40 06/27/22 11:40 Laboratory Results WBC 4.4 10^3/uL (4.0-10.0) 06/27/22 11:40 RBC 4.79 10^6/uL (4.1-5.3) 06/27/22 11:40 Hgb 15.0 g/dL (11.7-16.6) 06/27/22 11:40 Hct 44.9 % (42.0-52.0) 06/27/22 11:40 MCV 93.7 fl (80-94) 06/27/22 11:40 MCH 31.3 pg (28.0-34.0) 06/27/22 11:40 MCHC 33.4 g/dL (30.0-36.0) 06/27/22 11:40 RDW 13.0 % (12.1-15.1) 06/27/22 11:40 Plt Count 249 10^3/cmm (130-400) 06/27/22 11:40 MPV 8.8 fL (7.4-10.4) 06/27/22 11:40 Neut % (Auto) 53.1 % 06/27/22 11:40 Lymph % (Auto) 29.7 % 06/27/22 11:40 Woodward % (Auto) 13.3 % 06/27/22 11:40 Eos % (Auto) 3.0 % 06/27/22 11:40 Baso % (Auto) 0.7 % 06/27/22 11:40 Neut # (Auto) 2.31 10^3/uL (1.8-7.7) 06/27/22 11:40 Lymph # (Auto) 1.3 10^3/uL (0.8-4.8) 06/27/22 11:40 Woodward # (Auto) 0.6 10^3/uL (0.2-0.9) 06/27/22 11:40 Eos # (Auto) 0.1 10^3/uL (0.0-0.8) 06/27/22 11:40 Baso # (Auto) 0.0 10^3/uL (0.0-0.1) 06/27/22 11:40 Nucleated RBC % (auto) 0 % 06/27/22 11:40 Nucleated RBCs # 0.0 /100WBC 06/27/22 11:40 Sodium 135 mmol/L (136-145) L 06/27/22 11:40 Potassium 4.5 mmol/L (3.5-5.1) 06/27/22 11:40 Chloride 100 mmol/L (98-107) 06/27/22 11:40 Carbon Dioxide 24 mmol/L (22-29) 06/27/22 11:40 Anion Gap 15.5 (5-19) 06/27/22 11:40 BUN 18 mg/dL (8-23) 06/27/22 11:40 Creatinine 1.2 mg/dL (0.7-1.2) 06/27/22 11:40 GFR Calculation Not Reportable 06/27/22 11:40 Glucose 107 mg/dL (65-115) 06/27/22 11:40 Calculated Osmolality 282 mOsm/kg (285-295) L 06/27/22 11:40 Calcium 9.8 mg/dL (8.5-10.5) 06/27/22 11:40 Total Bilirubin 0.3 mg/dL (0.15-1.2) 06/27/22 11:40 AST 17 U/L (0-40) 06/27/22 11:40 ALT 15 U/L (0-41) 06/27/22 11:40 Alkaline Phosphatase 81 U/L (40-130) 06/27/22 11:40 Total Protein 7.5 g/dL (6.6-8.7) 06/27/22 11:40 Albumin 4.3 g/dL (3.5-5.2) 06/27/22 11:40 Globulin 3.2 g/dL (1.3-4.6) 06/27/22 11:40 Discharge Plan Discharge Patient Disposition: Home Clinical Impression: Fracture of distal phalanx of finger, open Qualifiers: Encounter type: initial encounter Finger: thumb Fracture alignment: nondispla himanshu Laterality: left Qualified Code(s): S62.525B - Nondisplaced fracture of distal phalanx of left thumb, initial encounter for open fracture Laceration of thumb with damage to nail Qualifiers: Encounter type: initial encounter Foreign body presence: without foreign body Laterality: left Qualified Code(s): S61.112A - Laceration without foreign body of left thumb with damage to nail, initial encounter Condition: Stable Prescriptions: New cephalexin 500 mg capsule 500 mg PO Q6H 7 Days Qty: 28 0RF No Action trazodone 150 mg tablet 150 mg PO DAILY tamsulosin 0.4 mg capsule 0.4 mg PO DAILY finasteride [Proscar] 5 mg tablet 5 mg PO DAILY bisoprolol fumarate 5 mg tablet 10 mg PO DAILY gemfibrozil [Lopid] 600 mg tablet 600 mg PO DAILY aspirin 81 mg tablet,delayed release (DR/EC) 81 mg PO DAILY folic acid 1 mg tablet 1 mg PO DAILY multivitamin Tablet 1 tab PO DAILY levothyroxine 50 mcg capsule 75 mcg PO DAILY gabapentin 600 mg Tablet 600 mg PO BID Discharge Orders: Discharge ED (Routine); Ordered 06/27/22 Ordered By: Jamal Reinoso Referrals: Reshma Feng MD [Primary Care Provider] - Discharge Diet: Regular Discharge Activity: Increase activity as tolerated Patient Instructions: Fractures - Phalanx (Finger), Finger Laceration (ED) Activity Restrictions/Additional Instructions: Follow-up with medical provider as directed. Call Dr. Glynn's office today and set up an appoint with them to be seen tomorrow or Monday for follow-up. Take medications as prescribed. Return to the ER or your medical provider if condition worsens. Please read and understand discharge instructions. Thank you for choosing [facility] for your healthcare needs today. Please realize this is an emergency room and that we are providing you with a medical screening exam and this may not be complete and all inclusive of all the testing and or work up that you may need to determine your ailment or severity of your illness. It is very important that you follow up as instructed or that you return to the Emergency Department should you have concerns or if your condition changes or worsens in any way. Coding Level of Care Code ED Rag Sorter for Chg Fwd Exam Comprehensive Documented by User: Byron Porter DO 06/27/22 16:30 HPI - Wound/Laceration General: Chief Complaint: Wound/Laceration Stated Complaint: Left thumb lac Time Seen by Provider: 06/27/22 10:50 [facility] ED PFSH: Medical History BPH loc w urin obs/LUTS Elevated PSA History of throat cancer Surgical History History of back surgery History of carpal tunnel release of both wrists History of varicose vein stripping Hx of appendectomy Hx of arthroscopy of right knee Hx of hemorrhoidectomy Family History Father , AT AGE 87 CAD (coronary artery disease) Mother , AT AGE 91 Cancer COLON Social History Smoking and tobacco status: never smoked Alcohol intake: never Marital status: Current occupational status: retired History of recent travel: No Course Vital Signs: Vital signs: Vital Signs Temperature 98.3 F 06/27/22 12:19 Pulse Rate 62 06/27/22 12:19 Respiratory Rate 18 06/27/22 12:19 Blood Pressure 169/95 06/27/22 12:19 Pulse Oximetry 93 06/27/22 12:19 MDM - Wound/Laceration Medical Decision Making Patient is a 76-year-old male comes to the ED with injury to left thumb. Patient has an amputation of the distal aspect of left thumb. Amputation involves over half of nail bed area. No visible bone sticking out are seen. Patient was given updated tetanus here in the ED. Left hand x-ray showed amputation of distal thumb involving the mid distal phalanx. Digital block was performed on thumb with bupivacaine and the nurse then irrigated thumb and wound extensively with normal saline and beta iodine. A Vaseline gauze was placed over wound that was bandaged up as well. Patient was given a dose of IV Ancef here in the ED. I placed order with case management for patient be referred to Ortho for follow-up. I told patient to call Dr. Glynn's office tomorrow morning to set up an appointment to be evaluated in the next 1 to 2 days. Return ED precautions given. Patient was discharged home with some hydrocodone and Keflex. Patient understood and agreed with plan. Chart reviewed and patient discussed with midlevel. Agree with assessment and plan. Lab Data 06/27/22 11:40 06/27/22 11:40 Laboratory Results WBC 4.4 10^3/uL (4.0-10.0) 06/27/22 11:40 RBC 4.79 10^6/uL (4.1-5.3) 06/27/22 11:40 Hgb 15.0 g/dL (11.7-16.6) 06/27/22 11:40 Hct 44.9 % (42.0-52.0) 06/27/22 11:40 MCV 93.7 fl (80-94) 06/27/22 11:40 MCH 31.3 pg (28.0-34.0) 06/27/22 11:40 MCHC 33.4 g/dL (30.0-36.0) 06/27/22 11:40 RDW 13.0 % (12.1-15.1) 06/27/22 11:40 Plt Count 249 10^3/cmm (130-400) 06/27/22 11:40 MPV 8.8 fL (7.4-10.4) 06/27/22 11:40 Neut % (Auto) 53.1 % 06/27/22 11:40 Lymph % (Auto) 29.7 % 06/27/22 11:40 Woodward % (Auto) 13.3 % 06/27/22 11:40 Eos % (Auto) 3.0 % 06/27/22 11:40 Baso % (Auto) 0.7 % 06/27/22 11:40 Neut # (Auto) 2.31 10^3/uL (1.8-7.7) 06/27/22 11:40 Lymph # (Auto) 1.3 10^3/uL (0.8-4.8) 06/27/22 11:40 Woodward # (Auto) 0.6 10^3/uL (0.2-0.9) 06/27/22 11:40 Eos # (Auto) 0.1 10^3/uL (0.0-0.8) 06/27/22 11:40 Baso # (Auto) 0.0 10^3/uL (0.0-0.1) 06/27/22 11:40 Nucleated RBC % (auto) 0 % 06/27/22 11:40 Nucleated RBCs # 0.0 /100WBC 06/27/22 11:40 Sodium 135 mmol/L (136-145) L 06/27/22 11:40 Potassium 4.5 mmol/L (3.5-5.1) 06/27/22 11:40 Chloride 100 mmol/L (98-107) 06/27/22 11:40 Carbon Dioxide 24 mmol/L (22-29) 06/27/22 11:40 Anion Gap 15.5 (5-19) 06/27/22 11:40 BUN 18 mg/dL (8-23) 06/27/22 11:40 Creatinine 1.2 mg/dL (0.7-1.2) 06/27/22 11:40 GFR Calculation Not Reportable 06/27/22 11:40 Glucose 107 mg/dL (65-115) 06/27/22 11:40 Calculated Osmolality 282 mOsm/kg (285-295) L 06/27/22 11:40 Calcium 9.8 mg/dL (8.5-10.5) 06/27/22 11:40 Total Bilirubin 0.3 mg/dL (0.15-1.2) 06/27/22 11:40 AST 17 U/L (0-40) 06/27/22 11:40 ALT 15 U/L (0-41) 06/27/22 11:40 Alkaline Phosphatase 81 U/L (40-130) 06/27/22 11:40 Total Protein 7.5 g/dL (6.6-8.7) 06/27/22 11:40 Albumin 4.3 g/dL (3.5-5.2) 06/27/22 11:40 Globulin 3.2 g/dL (1.3-4.6) 06/27/22 11:40 Discharge Plan Discharge Patient Disposition: Home Clinical Impression: Fracture of distal phalanx of finger, open Qualifiers: Encounter type: initial encounter Finger: thumb Fracture alignment: nondispla himanshu Laterality: left Qualified Code(s): S62.525B - Nondisplaced fracture of distal phalanx of left thumb, initial encounter for open fracture Laceration of thumb with damage to nail Qualifiers: Encounter type: initial encounter Foreign body presence: without foreign body Laterality: left Qualified Code(s): S61.112A - Laceration without foreign body of left thumb with damage to nail, initial encounter Condition: Stable Prescriptions: New cephalexin 500 mg capsule 500 mg PO Q6H 7 Days Qty: 28 0RF No Action trazodone 150 mg tablet 150 mg PO DAILY tamsulosin 0.4 mg capsule 0.4 mg PO DAILY finasteride [Proscar] 5 mg tablet 5 mg PO DAILY bisoprolol fumarate 5 mg tablet 10 mg PO DAILY gemfibrozil [Lopid] 600 mg tablet 600 mg PO DAILY aspirin 81 mg tablet,delayed release (DR/EC) 81 mg PO DAILY folic acid 1 mg tablet 1 mg PO DAILY multivitamin Tablet 1 tab PO DAILY levothyroxine 50 mcg capsule 75 mcg PO DAILY gabapentin 600 mg Tablet 600 mg PO BID Discharge Orders: Discharge ED (Routine); Ordered 06/27/22 Ordered By: Jamal Reinoso Referrals: Reshma Feng MD [Primary Care Provider] - Discharge Diet: Regular Discharge Activity: Increase activity as tolerated Patient Instructions: Fractures - Phalanx (Finger), Finger Laceration (ED) Activity Restrictions/Additional Instructions: Follow-up with medical provider as directed. Call Dr. Glynn's office today and set up an appoint with them to be seen tomorrow or Monday for follow-up. Take medications as prescribed. Return to the ER or your medical provider if condition worsens. Please read and understand discharge instructions. Thank you for choosing [facility] for your healthcare needs today. Please realize this is an emergency room and that we are providing you with a medical screening exam and this may not be complete and all inclusive of all the testing and or work up that you may need to determine your ailment or severity of your illness. It is very important that you follow up as instructed or that you return to the Emergency Department should you have concerns or if your condition changes or worsens in any way. Coding Level of Care Code ED Rag Sorter for Bj Fwalda Exam Comprehensive
[2022-06-27] MEDS: ondansetron 2 mg/ML SDV 2 mL 4 MG IVP (11:37)
[2022-06-27] MEDS: morphine 4 mg/mL SDV 1 mL IVP (11:39)
[2022-06-27] MEDS: sodium chloride 0.9% 500 ML IV (11:41)
[2022-06-27] MEDS: ceFAZolin 2,000 MG in sodium chloride 0.9% (plus) 50 ML 100 MG IV (11:41)
[2022-06-27 11:49] LABS: Basophils % 0.7 %; Eosinophils # 0.1 10^3/uL (0.0-0.8); Hematocrit 44.9 % (42.0-52.0); Lymphocytes # 1.3 10^3/uL (0.8-4.8); Lymphocytes % 29.7 %; Mean Corpuscular HGB Conc 33.4 g/dL (30.0-36.0); Mean Corpuscular Hemoglobin 31.3 pg (28.0-34.0); Mean Corpuscular Volume 93.7 fl (80-94); Mean Platelet Volume 8.8 fL (7.4-10.4); Monocytes # 0.6 10^3/uL (0.2-0.9); Monocytes % 13.3 %; Neutrophils # 2.31 10^3/uL (1.8-7.7); Neutrophils % 53.1 %; Nucleated Red Blood Cells % 0 %; Platelet Count 249 10^3/cmm (130-400); Red Blood Count 4.79 10^6/uL (4.1-5.3); White Blood Count 4.4 10^3/uL (4.0-10.0)
[2022-06-27 12:09] LABS: Alanine Aminotransferase 15 U/L (0-41); Albumin Level 4.3 g/dL (3.5-5.2); Alkaline Phosphatase 81 U/L (40-130); Anion Gap 15.5 (5-19); Aspartate Amino Transferase 17 U/L (0-40); Blood Urea Nitrogen 18 mg/dL (8-23); Calcium 9.8 mg/dL (8.5-10.5); Carbon Dioxide 24 mmol/L (22-29); Chloride 100 mmol/L (98-107); Globulin 3.2 g/dL (1.3-4.6); Glucose 107 mg/dL (65-115); Osmolality Calculated 282 mOsm/kg (285-295); Potassium 4.5 mmol/L (3.5-5.1); Sodium 135 mmol/L (136-145); Total Bilirubin 0.3 mg/dL (0.15-1.2); Total Protein 7.5 g/dL (6.6-8.7)
[2022-06-27] MEDS: tetanus-dipt-pertussis 0.5 mL SDV IM (12:16)
[2022-06-27 12:19] VITALS: BP 169/95; PULSE 62; RESP 18; TEMP 36.8; O2SAT 93
--- NOTE | 2022-06-28 09:13 | DCPLANNER ---
Addendum entered by Nicky Mcnair 06/30/22 13:32: Patient had a follow up appointment scheduled for 06.29.22 with ortho - patient did attend appointment. Addendum entered by Nicky Mcnair 06/28/22 09:14: Patient has [employer] insurance, correctional casework specialist sent patients information to [place] with [employer] [facility] [employer] community, for the authorization process to be started. Original Note: insurance manager had message to schedule a follow up appointment for patient with ortho. insurance manager sent patients information to the front office staff at ortho. Patients information will be printed and reviewed. Clinic will call patient with appointment information.
== END 2022-06-27 13:45 | disposition home or self-care (01) ==
PROVIDERS: Emergency Provider Physician Assistant; PCP Family Medicine
DX: S68.022A Partial traumatic metacarpophalangeal amputation of left thumb, initial encounter (principal); S62.525B Nondisplaced fracture of distal phalanx of left thumb, initial encounter for open fracture; Z79.82 Long term (current) use of aspirin; W27.0XXA Contact with workbench tool, initial encounter; Z85.89 Personal history of malignant neoplasm of other organs and systems; Z23 Encounter for immunization
CPT/HCPCS: 64450; 73130; 80053; 85025; 90471; 90715; 96365; 96375; 99284; J0690; J2270; J2405; J3490; J7040

== ENCOUNTER → 2022-06-29 07:38 | Outpatient (BNVA) | payer OTHER, MEDICARE, SELFPAY | PROVIDERS: PCP Family Medicine; Referring Provider Physician Assistant; Visit Provider Orthopaedic Surgery | DX: S62.525B Nondisplaced fracture of distal phalanx of left thumb, initial encounter for open fracture (principal) | CPT/HCPCS: 99203 ==

== ENCOUNTER → 2022-07-12 08:08 | Outpatient (BNVA) | payer MEDICARE, BC, SELFPAY | PROVIDERS: PCP Family Medicine; Visit Provider Urology | DX: N40.1 Benign prostatic hyperplasia with lower urinary tract symptoms (principal) | CPT/HCPCS: 51798; 81003; 99213 ==

== ENCOUNTER → 2022-07-13 07:45 | Outpatient (BNVA) | payer OTHER, SELFPAY | PROVIDERS: PCP Family Medicine; Visit Provider Nurse Practitioner Family | DX: S68.522A Partial traumatic transphalangeal amputation of left thumb, initial encounter (principal); W31.2XXA Contact with powered woodworking and forming machines, initial encounter | CPT/HCPCS: 99213 ==

== ENCOUNTER → 2022-07-27 08:40 | Outpatient (BNVA) | payer OTHER, SELFPAY | PROVIDERS: PCP Family Medicine; Visit Provider Nurse Practitioner Family | DX: M17.12 Unilateral primary osteoarthritis, left knee (principal); S62.525B Nondisplaced fracture of distal phalanx of left thumb, initial encounter for open fracture; W31.2XXA Contact with powered woodworking and forming machines, initial encounter | CPT/HCPCS: 99214 ==

== ENCOUNTER 2022-08-10 14:20 | Outpatient (CLI) | payer OTHER, SELFPAY ==
--- NOTE | 2022-08-10 14:30 | CT_ITS ---
WS: [id number] CT LEFT knee, noncontrast HISTORY: knee surgery TECHNIQUE: Protocol for FELIZ total knee replacement has been obtained. This includes axial imaging th rough the LEFT hip, LEFT knee and LEFT ankle. DLP: 960.42 mGy.cm COMPARISON: None available. Pelvis: Symmetric appearance of the hips. No destructive bone lesions. Mild prostate gland encroachin g into the bladder. LEFT knee: Mild joint space narrowing. Small joint effusion. LEFT ankle: Negative. CT/CT knee LT wo con* [id number] IMPRESSION: CT imaging provided for [facility] robotic total knee replacement.
== END 2022-08-10 14:21 | disposition home or self-care (01) ==
LOC: RAD 14:21
PROVIDERS: PCP Family Medicine; Visit Provider Orthopaedic Surgery
DX: Z96.652 Presence of left artificial knee joint (principal)
CPT/HCPCS: 73700

== ENCOUNTER 2022-08-15 08:39 | Outpatient (CLI) | payer OTHER, SELFPAY | END 2022-08-15 08:40 | disposition home or self-care (01) | PROVIDERS: PCP Family Medicine; Visit Provider Orthopaedic Surgery | DX: Z13.6 Encounter for screening for cardiovascular disorders (principal); R00.1 Bradycardia, unspecified; I44.0 Atrioventricular block, first degree | CPT/HCPCS: 93005 ==

== ENCOUNTER 2022-08-22 10:12 | Observation (INO) | payer OTHER, SELFPAY ==
[2022-08-15 08:54] VITALS: BMI 32.6
--- NOTE | 2022-08-15 09:01 | ECG_ITS ---
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 Measurements Intervals [place] Rate: 56 P: 83 WA: 240 QRS: 49 QRSD: 88 T: 80 QT: 390 QTc: 377 Interpretive Statements SINUS BRADYCARDIA WITH FIRST DEGREE AV BLOCK Compared to ECG 11/09/2021 12:02:02 Sinus arrhythmia no longer present Electronically Signed On 08-16-2022 7:49:25 START UP SPECIALIST by Joseluis Gomez M.D. [email or web address] choice medical center of smith countyRadish Systemstogus va medical centerLivongo Health/store/OM/[id number]
--- NOTE | 2022-08-15 09:18 | ANES.PREANE2 ---
Pre-Anesthetic Assessment Height/Weight: Height 1.73 m Weight 97.522 kg Preop Diagnosis: Osteoarthritis Right knee Operation Date: 08/22/22 12:50 Proposed Procedures p LEft total knee arthroplasty with jem: 98644 M17.12(Left) - Mitchell Glynn MD Familial anesthetic complications: None Social No alcohol and No tobacco Exam alert, oriented x 3, clear to auscultation bilaterally and regular rate & rhythm Airway Mallampati: Class II Dentition: false Pulmonary None reported CV/HEM Arrythmia (sinus ketty) and Hypertension GI Gastroesophageal Reflux Disease Metabolic Thyroid Disease Anesthetic Plan ASA status: 3 Anesthesia: Regional (specify below) (spinal + adductor canal) Risk of > 500 ml blood loss (7ml/kg in children): No Medications/Allergies Home Medications Medication Instructions Recorded Confirmed Last Taken Type bisoprolol fumarate 5 mg tablet 10 mg PO DAILY 07/14/20 08/15/22 08/15/22 History finasteride 5 mg tablet (Proscar) 5 mg PO DAILY 07/14/20 08/15/22 08/15/22 History folic acid 1 mg tablet 1 mg PO DAILY 07/14/20 08/15/22 08/15/22 History gemfibrozil 600 mg tablet (Lopid) 600 mg PO DAILY 07/14/20 08/15/22 08/15/22 History multivitamin 1 tab PO DAILY 07/14/20 08/15/22 08/15/22 History tamsulosin 0.4 mg capsule 0.4 mg PO DAILY 07/14/20 08/15/22 08/14/22 History trazodone 150 mg tablet 150 mg PO DAILY 07/14/20 08/15/22 08/15/22 History levothyroxine 50 mcg capsule 75 mcg PO DAILY 02/19/21 08/15/22 08/15/22 History gabapentin 600 mg tablet 600 mg PO BID 11/09/21 08/15/22 08/15/22 History naproxen 500 mg tablet 500 mg PO BID PRN Pain 08/15/22 08/15/22 08/14/22 History Allergies Allergy/AdvReac Type Severity Reaction Status Date / Time No Known Allergies Allergy Verified 08/15/22 08:50 [facility] Anesthesia Medical History BPH loc w urin obs/LUTS Elevated PSA History of throat cancer Surgical History History of back surgery History of carpal tunnel release of both wrists History of varicose vein stripping Hx of appendectomy Hx of arthroscopy of right knee Hx of hemorrhoidectomy Family History Father , AT AGE 87 CAD (coronary artery disease) Mother , AT AGE 91 Cancer COLON Social History Smoking and tobacco status: never smoked Alcohol intake: never Marital status: Current occupational status: retired History of recent travel: No Data Anesthesia Cardiac Studies: No Data to Display
[2022-08-22] VITALS (22 sets, daily range): BP systolic 98–168; BP diastolic 57–89; PULSE 54–90; RESP 15–22; TEMP 36.4–36.6; O2SAT 92–97
[2022-08-22] MEDS: acetaminophen 500 mg Tablet 1000 MG PO ×3 (06:12→22:33)
[2022-08-22] MEDS: sodium chloride 0.9% 1,000 ML 30 ML IV (06:13)
[2022-08-22] MEDS: oxyCODONE 20 mg ER (12 HR) Tablet PO (06:13)
[2022-08-22] MEDS: CELEcoxib 200 mg Capsule 400 MG PO (06:13)
--- NOTE | 2022-08-22 07:13 | W.PM.OPSFHP ---
Same Day Surgery H&P Indication for Procedure/HPI DATE OF PROCEDURE: August 22, 2022 CHIEF COMPLAINT/INDICATIONFOR SURGICAL PROCEDURE: Osteoarthritis left knee here for total knee arthroplasty PREOP DIAGNOSIS: Osteoarthritis left knee PLANNED PROCEDURE: Operation Date: 08/22/22 07:00 Proposed Procedures p LEft total knee arthroplasty with jem: 25305 M17.12(Left) - Mitchell Glynn MD 76 year old male patient, he is here today for left total knee arthroplasty. he states that he has had pain in his knee for years but states that in the last 6 months his pain has went from a 2/10 to a 8/10. He denies any previous injuries. He states that his pain is reproduced by walking and standing. He states that he has tried tylenol without relief. He states that his pain is to the anterior and posterior knee. He states that his knee will feel like it is going to give out when he is walking but he has not fallen.? He states late May he attempted to put Gregg lights it was nearly impossible due to his pain.? Medications/Allergies* Home Medications Medication Instructions Recorded Confirmed Type bisoprolol fumarate 5 mg tablet 10 mg PO DAILY 07/14/20 08/15/22 History finasteride 5 mg tablet (Proscar) 5 mg PO DAILY 07/14/20 08/15/22 History folic acid 1 mg tablet 1 mg PO DAILY 07/14/20 08/15/22 History gemfibrozil 600 mg tablet (Lopid) 600 mg PO DAILY 07/14/20 08/15/22 History multivitamin 1 tab PO DAILY 07/14/20 08/15/22 History tamsulosin 0.4 mg capsule 0.4 mg PO DAILY 07/14/20 08/15/22 History trazodone 150 mg tablet 150 mg PO DAILY 07/14/20 08/15/22 History levothyroxine 50 mcg capsule 75 mcg PO DAILY 02/19/21 08/15/22 History gabapentin 600 mg tablet 600 mg PO BID 11/09/21 08/15/22 History naproxen 500 mg tablet 500 mg PO BID PRN Pain 08/15/22 08/15/22 History Allergies/Adverse Reactions Allergy/AdvReac Type Severity Reaction Status Date / Time No Known Allergies Allergy Verified 08/15/22 08:50 Current Medications: Generic Name Dose Route Start Last Admin Trade Name Freq PRN Reason Stop Dose Admin Sodium Chloride 1,000 mls @ 30 mls/hr 08/22/22 05:45 08/22/22 06:13 Sodium Chloride 0.9% IV 08/23/22 05:44 30 mls/hr .Q24H KITTY Administration Pertinent History/Comorbid Conditions* Medical History (Updated 07/05/22 @ 00:00 by JONATHAN Fuller) BPH loc w urin obs/LUTS Elevated PSA History of throat cancer Surgical History (Updated 11/15/21 @ 17:17 by Mitchell Glynn MD) History of back surgery History of carpal tunnel release of both wrists History of varicose vein stripping Hx of appendectomy Hx of arthroscopy of right knee Hx of hemorrhoidectomy Family History (Updated 07/06/20 @ 12:15 by NGOC Proctor) Father, AT AGE 87 Mother, AT AGE 91 CAD (coronary artery disease) Father Cancer Mother COLON Social History Smoking and tobacco status: never smoked Alcohol intake: never Marital status: Current occupational status: retired History of recent travel: No Pertinent Exam Findings alert, oriented x 3, clear to auscultation bilaterally and regular rate & rhythm KNEE left Varus alignment left knee Tender medial joint line RANGE OF MOTION: ? ? ? EXAMINED LIMB ? Extention: Just short of full extent ? Flexion: 110 degrees Clear patellofemoral crepitation Palpable left dorsalis pedis pulse MOTOR: Strong quadriceps hamstrings tibialis anterior and extensor houses longus strength SENSATION: Intact to light touch Recommendations Surgery/Procedure today Coding Level of Care Code Acute Code for Kyreeg Fwd
[2022-08-22] MEDS: ceFAZolin 2,000 MG in sodium chloride 0.9% (plus) 50 ML 100 MG IV ×3 (07:14→22:33)
[2022-08-22] MEDS: tranexamic acid 1,000 mg/10mL SDV 1000 MG IV (07:55)
[2022-08-22] MEDS: EPINEPHrine 1 mg/mL INJ XX (08:03)
[2022-08-22] MEDS: ketorolac 30 mg/mL INJ XX (08:05)
--- NOTE | 2022-08-22 09:19 | XRR_ITS ---
PROCEDURE INFORMATION: Exam: XR Left Knee Exam date and time: 08/22/2022 9:55 AM Age: 76 years old Clinical indication: Device placement; Joint replacement hardware; Prior surgery; Surgery date: Post-operative (0-2 days); Surgery type: Left total knee arthroplasty TECHNIQUE: Imaging protocol: Radiologic exam of the Left knee. Views: 1 or 2 views. COMPARISON: CT knee LT wo con* [id number] 08/10/2022 2:55 PM FINDINGS: Bones/joints: The patient is status post left total knee arthroplasty. No fracture or dislocation. Expected postoperative soft tissue changes noted. Soft tissues: See Bones/joints finding. XR/XR knee LT 1-2V [id number] IMPRESSION: Status post left total knee arthroplasty, without evidence of hardware related complication.
--- NOTE | 2022-08-22 09:21 | P.OP_ITS ---
Operative Report Date of procedure: August 22, 2022 Pre-op diagnosis: Preop Diagnosis Osteoarthritis left knee Post-op diagnosis: same Post-op diagnosis: Same Post-op findings: Same Procedure done: Left total knee arthroplasty Implants: Elías Triathalon total knee arthroplasty components were used includin) Size 7 triathalon cruciate retaining femoral component 2) Size 7 Tritanium tibial component 3) Size 7/10mm thickness CS tibial bearing insert Pathology: none sent Surgeon: Mitchell Glynn Telemarketing Fundraiser: Robe Rogers Telemarketing Fundraiser: The nurse practitioner the nurse practitioner assisted with critical portions of the case including positioning, draping, exposure, component implantation, closure and dressing application and is present through the entirety of the case. Anesthesia: Nerve Block (Spinal, adductor canal block) Estimated blood loss (mL): 150 Findings: The patient eburnated bone over the medial femoral condyle, lateral femoral condyle and medial tibial plateau. There was tearing of the patellar cartilage but no exposed bone Condition: stable Disposition: PACU Brief History: See admission history and Procedure: The patient was taken to the operating room. Patient was given 1 g of tranexamic acid and 2 g of Ancef. The above anesthesia provided by the anesthesia service. A timeout was performed. The patient was prepped and draped in the usual fashion with the lower extremity exposed. A anterior incision was made, midline, from a point proximal to the patella to the distal tibial tubercle. The knee was entered through a medial parapatellar approach. The patella could be displaced laterally and the knee flexed. The patellar fat pad was resected to provide better visibility. Retractors were placed medially and laterally adjacent to the tibial plateau. At a point approximately 8 cm above the patella, 2 small incisions were made with a scalpel blade and 2 long threaded pins were placed into the anterior medial femur engaging both cortices. The femoral arrays were placed over these pins and secured. At a point 8 cm distal to the tibial tubercle. 2 shorter bicortical threaded pins were placed across the anterior medial tibia and the t ibial arrays placed. A checkpoint was made just proximal and medial to the medial femoral condyle and just medial to the tibial plateau. Small osteotomes were placed in the joint in both flexion and extension to determine ligamentous laxity. Femoral cuts were made and additional 1 degree of external rotation in the tibia cut an additional 1 mm. The FELIZ robot was then introduced to the field and the femur and tibia cut in accordance with our plan. he Ba and Nephew Fastseal was then used to provide hemostasis, particularly about the posterior capsule. A trial with the above components provided excellent stability and full range of motion. The femur was then prepared for the femoral pegs of the component in the tibia for the tibial component. The femur and tibia were then press-fit into place. An osteotome was used to remove the lateral 8 mm of the patella to minimize chances of later impingement. A neurectomy was accomplished circumferentially about the patella with electro cautery and lateral osteophytes removed. Surfaces were cleaned with a gentamicin solution. The femur and tibia were then press-fit into place. The posterior capsule and collateral ligaments were then injected with a solution of 100 mL of 0.2% ropivacaine, 1 mL of a 1:1000 epinephrine solution, 30 mg of Toradol, and 1 g of tranexamic acid. Final polyethylene component was then snapped into place into the tibia. The extensor retinaculum was closed with a running 1 Stratafix interrupted 1 Ethibond. The subcutaneous tissues were closed with 2-0 Vicryl and the skin was closed with a running 4-0 Stratafix. The wound was covered with a Dermabond Prineo dressing. It was covered with 4xrs and a compressive Tubigauze was applied. The patient was taken to recovery room in stable condition.
--- NOTE | 2022-08-22 09:34 | P.ANESUD_ITS ---
Pre-Anesthetic Update Pre-Anesthetic Assessment: Date of Surgery/Procedure: 08/22/22 Preop Chelle gnosis: Osteoarthritis left knee Proposed Procedure: Operation Date: 08/22/22 07:00 Proposed Procedures p LEft total knee arthroplasty with jem: 52155 M17.12(Left) - Mitchell Glynn MD Any changes to Pre-Anesthetic Assessment?: No Last Intake: Intake Last Liquid Date 08/21/22 Last Liquid Time 18:00 Last Solid Date 08/21/22 Last Solid Time 18:00 Vitals: Temperature 97.8 F 08/22/22 05:56 Temperature Source Temporal Artery S can 08/22/22 05:56 Pulse Rate 54 L 08/22/22 05:56 Pulse Rhythm 08/22/22 05:59 Pulse Strength 3+ Normal 08/22/22 05:59 Respiratory Rate 18 08/22/22 05:56 Blood Pressure 151/79 08/22/22 05:56 Blood Pressure Lela n 103 08/22/22 05:56 Pulse Oximetry 94 08/22/22 05:56 Oxygen Delivery Me thod 08/22/22 05:59 Exam: Pre-Anes Outpt Exam: alert, oriented x 3, clear to auscultation bilaterally and regular rate & rhythm Cardiac Studies: No Data to Display Anesthesia Procedures Nerve Block: Nerve Block 1: Main Anesthesia: spinal anesthesia block Time Out Performed: Yes Consent: requested by attending/covering physician, from patient, risks and benefits reviewed and patient agrees to proceed Nerve block location: adductor canal (left) Anesthesia monitors applied: pulse oximetry, EKG, BP cuff and oxygen Nerve block position: supine Anesthetic Used: ropivicaine 0.5% Amount of anesthesia used (mL): 20 Ultrasound used to: recognize landmarks Nerve Stimulator Used?: No Interscalene/Femoral BLK: 4 stimuplex 21 g needle used for position and inplane approach Injection: neg aspiration of heme Patient Tolerated Procedure: well Complications: none
--- NOTE | 2022-08-22 10:09 | SUR.PHASEI ---
0937 PT AWAKE ALERT HOB FLAT, PT RESPONDS VERBALLY AND APPROPRIATELY, PT WAS SPINAL ANESTHESIA, PT STATES NORMAL SENSATION TO TL 10 LEVEL, PT IS UNABLE TO MOVE BILAT FEET, PT VERBALLY DENEIS PAIN AND NAUSEA, LT KNEE DRESSING D/I FIRST ICE TO KNEE LT FOOT PINK WARM WITH STRONG REGULAR PULS NOTED AND MARKED, IV TO LT FOREARM #20 WITH 800MLU NS AT KVO RATE PER GRAVITY, ID BRACELET TO LT WRIST, PT ID'D WITH 2 IDENTIFIERS, X RAY CALLED. MONITOR SR WITH NO ECTIOPY NOTED. 1010 X RAY HERE AND DONE, PT HOB FLAT, DR BOYER AT BEDSIDE, PT DENIES PAIN AND NAUSEA, PT UNABLE TOMOVE BILAT FEET ATTHIS TIME. 1015 PT REMAINS AWAKE TALKATIVE, PT IS [place], HOB AT 10 DEGREES, PT STATES NORMAL SENSATION TO T-12 NOW AND PT HAS SOME GROSS THIGH MOVEMENT ON TH RT SIDE. VSS.
--- NOTE | 2022-08-22 10:32 | SUR.PHASEI ---
1032 PT AWAKE ALERT DRESSING TO LT KNEE UNCHANGED, FAMILY UPDATED, WAINTINT TO GIVE REPORT TO FLOOR NURSE.
--- NOTE | 2022-08-22 10:37 | SUR.PHASEI ---
UPDATED AGAIN, PT STABLE AND NOT HURTING, JUST WAITING TO GIVE REPORT TO THE FLOOR NURSE.
--- NOTE | 2022-08-22 10:59 | P.PCN_ITS ---
PACU note Narrative: VSS, Good respiratory effort, report to GRAIN SCOOPER Exam: awake
--- NOTE | 2022-08-22 10:59 | PM.PACU ---
PACU note Narrative: VSS, Good respiratory effort, report to AUTOMOTIVE TECHNOLOGY INSTRUCTOR Exam: awake
--- NOTE | 2022-08-22 11:12 | SUR.PHASEI ---
PT TO FLOOR PER BED PT AWAKE ALERT IN ROOM, DRESSING TO KNEE D/I HANDOFF TO FLOOR NURSE AT BEDSIDE,.
[2022-08-22] MEDS: sodium chloride 0.9% 1,000 ML 100 ML IV ×2 (12:00→22:32)
--- NOTE | 2022-08-22 16:12 | ANE.PACU2 ---
Inpatient post-anesthesia follow up: Airway intact: Yes Vital signs: Temperature 97.8 F Pulse Rate 77 Respiratory Rate 18 Blood Pressure 134/74 Pulse Oximetry 94 Oxygen Delivery Me thod Nasal Cannula Oxygen Flow Rate 2 Fraction of Inspir ed Oxygen Hydration adequate: Yes Nausea and vomiting: No Pain level: 2 Mental status: Baseline
[2022-08-22] MEDS: CELEcoxib 200 mg Capsule PO (17:21)
[2022-08-22] MEDS: sennosides-docusate Tablet 2 TAB PO (17:22)
[2022-08-22] MEDS: gabapentin 300 mg Capsule 600 MG PO (17:22)
[2022-08-23] VITALS: BP 155/82; PULSE 74; RESP 17; TEMP 36.8; O2SAT 91
[2022-08-23 02:42] LABS: Hemoglobin 12.4 g/dL (11.7-16.6)
[2022-08-23 04:00] VITALS: BP 172/81; PULSE 69; RESP 17; TEMP 36.8; O2SAT 92
[2022-08-23] MEDS: ceFAZolin 2,000 MG in sodium chloride 0.9% (plus) 50 ML 100 MG IV (06:11)
[2022-08-23] MEDS: CELEcoxib 200 mg Capsule PO (06:12)
[2022-08-23] MEDS: acetaminophen 500 mg Tablet 1000 MG PO (06:12)
[2022-08-23 07:39] VITALS: PULSE 69; RESP 16; O2SAT 94
[2022-08-23 07:43] VITALS: BP 180/96; PULSE 67; RESP 18; TEMP 36.6; O2SAT 95
[2022-08-23] MEDS: levothyroxine 75 mcg Tablet PO (08:38)
[2022-08-23] MEDS: gemfibrozil 600 mg Tablet PO (08:38)
[2022-08-23] MEDS: aspirin 325 mg EC Tablet PO (08:38)
[2022-08-23] MEDS: finasteride 5 mg Tablet PO (08:39)
[2022-08-23] MEDS: tamsulosin 0.4 mg Capsule PO (08:39)
[2022-08-23] MEDS: gabapentin 300 mg Capsule 600 MG PO (08:39)
[2022-08-23] MEDS: sennosides-docusate Tablet 2 TAB PO (08:39)
--- NOTE | 2022-08-23 10:36 | PC.CHAP ---
Pastoral Care Encounter/Spiritual Assessment Type of Contact [] Declined archeologist visit [] Patient/Family/Request visit [] Outpatient visit [] Follow-up visit [] Physician referral [] Code/Alert x[] Routine visit [] Staff referral [] Actively dying [] Patient sleeping [] Family support [] [] Out of room [] Palliative care [] [x] Receiving care in room [] Pre-surgical visit [] Trauma [] Long length of stay [] ICU visit [] Other: Relational/Emotional Strength [] Patient feels connected with others/family/visitors/staff [] Distress [] Loneliness/isolation [] Abandonment Spirituality of Patient [] Person of Prerna [] Attends Sikh of their Prerna [] Believes in Prayer [] Reads Bible or Adventism materials [] There are Spiritual issues to be addressed Glass Lined Tank Repairer Interventions [] Prayer [] Active listening [] Non-anxious presence [] Spiritual/emotional support [] Crisis/trauma care [] Spiritual counseling [] Bereavement support [] Provided bereavement packet [] Provided Bible/devotional materials [] Provided toy/stuffed animal, coloring book to patient or family member [] Provided Communion [] Anointing/[place] [] Salvation [] Completed spiritual assessment [] Other: Impact on Illness or Injury [] Angry [] Fearful [] Anxious [] Often cries [] Exhaustion [] Unable to work [] Unable to attend mu-ism [] Unable to walk/stand [] Unable to read [] Unable to drive [] Unable to eat/drink [] Unable to sleep [] Unable to be with family [] Patient intubated [] Other: Summary Time spent with patient
[2022-08-23 12:56] VITALS: BP 180/96; PULSE 67; RESP 18; TEMP 36.6; O2SAT 95
--- NOTE | 2022-08-24 08:09 | P.DS_ITS ---
Discharge Providers Date of Admission: 08/22/22 10:12 Date of Discharge: August 23, 2022 Attending Provider at Admission: Mitchell Glynn MD Attending Provider at Discharge: Mitchell Glynn MD Primary Care Provider: Reshma Feng MD Diagnoses at Discharge Discharge Diagnosis (1) Status post left knee replacement: Status: Acute (2) Degenerative arthritis of right knee: Status: Resolved Reason for Visit Reason for Visit: M17.12 Hospital Course Hospital Course The patient tolerated surgery well. They remained hemodynamically stable. They was begun on aspirin and continue present dressing for DVT prophylaxis. The p atient was mobilized with therapy beginning the day of surgery and by the first postoperative day independent with the walker. As the pain was adequately controlled and they were fully mobile they were discharged home. Physical Exam Narrative: On the day of discharge the knee incision was clean. They had no drainage. There is minimal swelling in the thigh and knee and the calf. No distal neurovascular deficits were noted Urinary Catheter Management: Nguyễn: Cath Placed During This Visit: yes, but has since been removed by the nurse Reason for Continuing Indwelling Catheter: Decision to DC Catheter Urinary Catheter Date of Insertion: 08/22/22 Urinary Catheter Time of Insertion: 07:55 Date Urinary Catheter Removed: 08/23/22 Time Urinary Catheter Discontinued: 06:22 Discharge Data Studies Completed and Pending Completed Studies During Hospitalization Category Date Time Status XR knee LT 1-2V [id number] Routine Exams 08/22/22 09:19 Completed Radiology Impressions Knee X-Ray 08/22/22 09:19 IMPRESSION: Status post left total knee arthroplasty, without evidence of hardware related complication. Laboratory Results Hgb 12.4 g/dL (11.7-16.6) 08/23/22 01:00 Vitals Last Vital Signs Temp 97.8 F 08/23/22 12:56 Pulse 67 08/23/22 12:56 Resp 18 08/23/22 12:56 BP 180/96 08/23/22 12:56 Pulse Ox 95 08/23/22 12:56 O2 Del Method 08/23/22 07:43 O2 Flow Rate 2 08/22/22 13:48 Discharge Plan Discharge Patient Disposition: Home Health Service Condition: Stable Prescriptions: New celecoxib 200 mg Capsule 200 mg PO Q12H 14 Days Qty: 28 0RF acetaminophen 500 mg Tablet 1,000 mg PO Q8H 14 Days Qty: 84 0RF aspirin 325 mg Tablet,Delayed Release (Dr/Ec) 325 mg PO DAILY 30 Days Qty: 30 0RF oxycodone 5 mg Tablet 5 mg PO Q4H PRN (Reason: Moderate Pain) 7 Days Qty: 40 0RF Continued trazodone 150 mg tablet 150 mg PO DAILY tamsulosin 0.4 mg capsule 0.4 mg PO DAILY finasteride [Proscar] 5 mg tablet 5 mg PO DAILY bisoprolol fumarate 5 mg tablet 10 mg PO DAILY gemfibrozil [Lopid] 600 mg tablet 600 mg PO DAILY folic acid 1 mg tablet 1 mg PO DAILY multivitamin Tablet 1 tab PO DAILY levothyroxine 50 mcg capsule 75 mcg PO DAILY gabapentin 600 mg Tablet 600 mg PO BID Held naproxen 500 mg Tablet 500 mg PO BID PRN (Reason: Pain) Hold Instructions: Resume on 09/06/22. Do not take Naproxen while taking Celebrex Discharge Orders: Discharge Order (Routine); Ordered 08/23/22 Ordered By: Mitchell Glynn Referrals: [facility] [Other] ([facility] has accepted you for services but is awaiting authorization from the [place]. If you haven't heard from them by 08/25 please contact them at [phone].) Robe Rogers FNP [Physician Group Reservations Coordinator] - 08/26/22 8:00 am Discharge Diet: Advance as tolerated Discharge Activity: Limit activity as instructed Patient Instructions: Celecoxib (By mouth), Oxycodone, Slow Release (By mouth), Knee Replacement (DC), Opioid Safety Activity Restrictions/Additional Instructions: Exercises per physical therapy Leave dressing in place OK to shower Call hospital separator operator shellfish meats and ask for Dr. Glynn if any problems. Discharge Attestations Time Spent in Discharge Care*: other Quality Metrics Clinical Quality Measures [ No reported AMI, CVA or VTE this stay] Coding Level of Care Code Acute Chg FW DC note Diagnoses Status post left knee replacement Z96.652 Degenerative arthritis of right knee M17.11
== END 2022-08-23 13:05 | disposition home health service (06) ==
LOC: MEDSURG 10:12
PROVIDERS: Admitting Provider Orthopaedic Surgery; PCP Family Medicine; Visit Provider Orthopaedic Surgery
PROC: 8E0Y0CZ Robotic Assisted Procedure of Lower Extremity, Open Approach (ICD-10-PCS; CPT 27447; principal; 2022-08-22 07:00)
DX: M17.12 Unilateral primary osteoarthritis, left knee (principal); K21.9 Gastro-esophageal reflux disease without esophagitis; I10 Essential (primary) hypertension; N40.1 Benign prostatic hyperplasia with lower urinary tract symptoms; N13.8 Other obstructive and reflux uropathy; Z85.89 Personal history of malignant neoplasm of other organs and systems
CPT/HCPCS: 27447; 51702; 73560; 85018; 97110; 97116; 97161; 97165; C1776; G0378; J0171; J0690; J1580; J1885; J2370; J2704; J2795; J3010; J7030

== ENCOUNTER → 2022-08-26 07:41 | Outpatient (BNVA) | payer OTHER, SELFPAY | PROVIDERS: PCP Family Medicine; Visit Provider Nurse Practitioner Family | DX: Z96.652 Presence of left artificial knee joint (principal) | CPT/HCPCS: 99024 ==

== ENCOUNTER → 2022-09-23 10:37 | Outpatient (BNVA) | payer OTHER, SELFPAY | PROVIDERS: PCP Family Medicine; Visit Provider Nurse Practitioner Family | DX: Z47.89 Encounter for other orthopedic aftercare (principal); Z96.652 Presence of left artificial knee joint | CPT/HCPCS: 73560; 73565; 99024 ==

== ENCOUNTER → 2022-12-29 10:13 | Outpatient (BNVA) | payer OTHER, SELFPAY | PROVIDERS: PCP Family Medicine; Visit Provider Nurse Practitioner Family | DX: Z98.890 Other specified postprocedural states (principal); Z96.653 Presence of artificial knee joint, bilateral | CPT/HCPCS: 73560; 73565; 99213 ==

== ENCOUNTER → 2023-03-22 13:03 | Outpatient (BNVA) | payer OTHER, SELFPAY | PROVIDERS: PCP Family Medicine; Visit Provider Dermatology | DX: L91.8 Other hypertrophic disorders of the skin (principal); L82.1 Other seborrheic keratosis; D23.112 Other benign neoplasm of skin of right lower eyelid, including canthus; Z85.828 Personal history of other malignant neoplasm of skin; L57.8 Other skin changes due to chronic exposure to nonionizing radiation; L81.4 Other melanin hyperpigmentation; L72.0 Epidermal cyst | CPT/HCPCS: 11200; 17000; 17003; 99203 ==

== ENCOUNTER 2023-05-19 14:09 | Inpatient (IN) | payer OTHER, SELFPAY ==
[2023-05-19] VITALS (9 sets, daily range): BP systolic 142–195; BP diastolic 84–126; PULSE 51–80; RESP 16–30; TEMP 36.4–37; O2SAT 91–98
--- NOTE | 2023-05-19 14:12 | CT_ITS ---
WS: [id number] CT HEAD NONCONTRAST HISTORY: headache TECHNIQUE: Contiguous axial imaging performed through the brain in 2.5 mm imaging. Bone and soft tiss ue windows. Sagittal and coronal reformats reviewed. All CT scans at [facility] use at least one of these dose optimization techniques: automated exposure control; mA and/or kV adjustment per pa tient size (includes targeted exams where dose is matched to clinical indication); or iterative recon struction. DLP: 1050.18 mGy.cm COMPARISON: None available. No acute intracranial hemorrhage, midline shift or mass effect. Moderate symmetric atrophy. Very minimal small vessel ischemic disease. No infarcts. Ventricles: Normal size with no hydrocephalus. No intra displacement the cerebellar tonsils. Paranasal sinuses: As visualized are clear. Mastoid air cells: Well pneumatized. Calvarium and scalp: Skull is intact with no soft tissue edema or swelling. IMPRESSION: 1. No acute intracranial hemorrhage or edema. 2. Moderate atrophy. No prior infarct.
[2023-05-19 14:29] LABS: Basophils % 0.3 %; Eosinophils # 0.2 10^3/uL (0.0-0.8); Eosinophils % 2.5 %; Hematocrit 41.7 % (37-53); Lymphocytes # 1.9 10^3/uL (0.8-4.8); Mean Corpuscular HGB Conc 34.5 g/dL (30-55); Mean Corpuscular Hemoglobin 31.7 pg (27-33); Mean Corpuscular Volume 91.9 fl (82-101); Mean Platelet Volume 8.6 fL (7.4-10.4); Monocytes # 0.6 10^3/uL (0.2-0.9); Monocytes % 10.1 %; Neutrophils # 3.42 10^3/uL (1.8-7.7); Neutrophils % 55.9 %; Nucleated Red Blood Cells % 0 %; Platelet Count 197 10^3/cmm (157-399); Red Blood Count 4.54 10^6/uL (3.85-5.65); Red Cell Distribution Width 12.8 % (12.1-15.1); White Blood Count 6.12 10^3/uL (3.29-11.43)
[2023-05-19 14:48] LABS: Alanine Aminotransferase 15 U/L (0-41); Albumin Level 4.4 g/dL (3.5-5.2); Alkaline Phosphatase 86 U/L (40-130); Anion Gap 20.4 (5-19); Aspartate Amino Transferase 17 U/L (0-40); Blood Urea Nitrogen 24 mg/dL (8-23); Calcium 9.8 mg/dL (8.5-10.5); Carbon Dioxide 20 mmol/L (22-29); Chloride 101 mmol/L (98-107); Globulin 2.7 g/dL (1.3-4.6); Glucose 167 mg/dL (65-115); Osmolality Calculated 294 mOsm/kg (285-295); Potassium 3.4 mmol/L (3.5-5.1); Sodium 138 mmol/L (136-145); Total Bilirubin 0.6 mg/dL (0.15-1.2); Total Protein 7.1 g/dL (6.6-8.7)
--- NOTE | 2023-05-19 15:15 | XR_ITS ---
WS: [id number] Exam: XR chest 1V portable [id number] Date/Time of Exam: 05/19/2023 3:16 PM Reason For Exam: dyspnea/cough Comparison 02/19/2021. The lungs are fully expanded and clear. Unremarkable cardiomediastinal silhouette. No pleural effusio ns. Bony structures are intact. IMPRESSION: 1. No acute cardiopulmonary finding.
--- NOTE | 2023-05-19 15:27 | ED_ITS ---
HPI - SOB/Dyspnea General: Chief Complaint: Nausea/Vomiting/Diarrhea Stated Complaint: DIZZINESS. ZEPEDA Time Seen by Provider: 05/19/23 14:10 Source: patient Mode of arrival: ambulatory History of Present Illness: HPI Narrative: 77-year-old male presents to the emergency room with complaint of dizziness and headache. According to nurses notes he had a sudden onset of nausea vomiting and dizziness. However when I talked to him he said this been going on for at least a couple of days then suddenly worsened this afternoon at around 1 PM. It is worse when he gets up and walks or moves better when he lays still. He had a near syncopal episode earlier. He has no known history of any coronary disease and not had any chest pain. He does seem to be short of breath interestingly when we set him up and have him take deep breaths for exam he gets more short of breath. He also notes shortness of breath with exertion. He has not had any swelling in the legs. MD elicited complaint: shortness of breath and cough Pertinent past history: COPD Timing: constant Exacerbating factors: nothing Relieving factors: nothing Known history of: COPD Associated symptoms: Deny abdominal pain, chest congestion, chest pain, cough, diaphoresis, dizziness, extremity pain, fever(s), hemoptysis, lightheadedness, myalgias, nausea, orthopnea, palpitations, paresthesias, polydipsia, polyuria, rash, sense of impending doom, syncope or vomiting Review of Systems Const: Denies: fever(s) or diaphoresis Card: Denies: chest pain, palpitations, lightheadedness, syncope or orthopnea Resp: Denies: hemoptysis or chest congestion GI: Denies: abdominal pain, nausea or vomiting : Denies: dysuria, urinary frequency or urinary urgency Musc: Denies: extremity pain Skin/Breast: Denies: rash Neuro: Denies: dizziness Endo: Denies: polyuria or polydipsia PFSH ED PFSH: Medical History BPH loc w urin obs/LUTS Elevated PSA History of throat cancer Surgical History History of back surgery History of carpal tunnel release of both wrists History of varicose vein stripping Hx of appendectomy Hx of arthroscopy of right knee Hx of hemorrhoidectomy Status post right knee replacement Family History Father , AT AGE 87 CAD (coronary artery disease) Mother , AT AGE 91 Cancer COLON Social History Smoking and tobacco/nicotine status: never used tobacco/nicotine Alcohol intake: never Marital status: Current occupational status: retired Physical Exam Const: COMMON NORMALS: no acute distress GENERAL APPEARANCE: cooperative and comfortable ORIENTATION/CONSCIOUSNESS: Yes awake, Yes oriented to person, Yes oriented to place and Yes oriented to time HENMT: COMMON NORMALS: normocephalic, atraumatic and hearing grossly normal bilaterally HEAD & SCALP: normocephalic and atraumatic Resp: COMMON NORMALS: normal respiratory effort, No retractions, No use of accessory muscles and clear to auscultation bilaterally AUSCULTATION: clear to auscultation bilaterally Cardio: COMMON NORMALS: regular rate, regular rhythm and No murmurs present (Cardio) RATE: regular rate RHYTHM: regular rhythm GI: COMMON NORMALS: Soft to palpation and No hepatosplenomegaly present AUSCULTATION: Yes normoactive bowel sounds PALPATION: Yes Soft to palpation, No Tenderness to palpation present (GI), No Guarding due to palpation present (GI) and Yes No hepatosplenomegaly present Extremity: COMMON NORMALS: normal to inspection, capillary refill normal, no clubbing, cyanosis or edema, no calf tenderness and no pedal edema Neuro: SENSORIUM/ORIENTATION: Yes oriented to person, Yes oriented to place and Yes oriented to time Skin: COMMON NORMALS: no rashes or lesions noted GENERAL SKIN EXAM: no rashes or lesions noted Course Vital Signs: Vital signs: Vital Signs Temperature 97.8 F 05/24/23 08:00 Pulse Rate 78 05/24/23 12:53 Respiratory Rate 15 05/24/23 12:53 Blood Pressure 142/78 05/24/23 12:53 Pulse Oximetry 94 05/24/23 12:53 Oxygen Delivery Me thod Room Air 05/24/23 11:16 MDM - SOB/Dyspnea Medical Decision Making Embolism left vertebral artery. Discussed with on-call [facility] neurologist they concur he is not a candidate for tPA at this point. We will admit for acute CVA they did recommended not heparinizing. I do not believe he is a candidate for embolectomy either. They reviewed all the CT discussed with hospitalist orders written Medical Records I reviewed the patient's medical records. Lab Data I reviewed the patient's lab results. 05/23/23 05:10 05/23/23 05:10 Labs/Radiology: Radiology Impressions Head/Neck CTA 05/19/23 15:51 IMPRESSION: 1. The right A2 segment of the KEYON is faintly and intermittently opacified beyond its origin suspicious for possible thrombus. The distal left KEYON also appears mildly attenuated attenuated at the A3 segment level. Recommend clinical correlation. 2. The left V4 segment of the vertebral artery is reconstituted in its distal V3/proximal V4 segment likely from collaterals. IMPRESSION: 1. There is occlusion of the left vertebral artery just beyond its origin. The neck vessels are otherwise patent. 2. Previously reported mass in the tongue not well characterized by arterial phase imaging. Correlate clinically. REFERENCES: NASCET CRITERIA. The degree of stenosis in the cervical segment of the internal carotid artery is based on NASCET criteria. Normal is no stenosis. Mild is less than 50% stenosis. Moderate is 50-69% stenosis. Severe is 70% to 99% stenosis. Total occlusion is no detectable patent lumen. ADDENDUM: 05/19/23 [id number] THIS REPORT CONTAINS FINDINGS THAT MAY BE CRITICAL TO PATIENT CARE. The findings were verbally communicated via telephone conference with JENN Steward at 4:59 PM CDT on 05/19/2023. The findings were acknowledged and understood. The distal KEYON is beyond the A2 segments are tortuous and appear to cross making it difficult to distinguish the right from left-sided branches. The A2 segment vessel attenuation is again suspected to be predominantly right-sided. Head MRI 05/20/23 07:33 IMPRESSION: 1. Small to moderate-sized acute left cerebellar infarct. 2. Tiny additional bilateral cerebellar infarcts. Head MRA 05/20/23 07:33 IMPRESSION: No stenosis or occlusion. Neck MRA 05/20/23 07:35 IMPRESSION: Occlusion of the left vertebral artery at the origin, unchanged. REFERENCES: NASCET CRITERIA. The degree of stenosis in the cervical segment of the internal carotid artery is based on NASCET criteria. Normal is no stenosis. Mild is less than 50% stenosis. Moderate is 50-69% stenosis. Severe is 70% to 99% stenosis. Total occlusion is no detectable patent lumen. Laboratory Results WBC 6.12 10^3/uL (3.29-11.43) 05/19/23 14:02 RBC 4.54 10^6/uL (3.85-5.65) 05/19/23 14:02 Hgb 14.40 g/dL (11.27-16.99) 05/19/23 14:02 Hct 41.7 % (37-53) 05/19/23 14:02 MCV 91.9 fl (82-101) 05/19/23 14:02 MCH 31.7 pg (27-33) 05/19/23 14:02 MCHC 34.5 g/dL (30-55) 05/19/23 14:02 RDW 12.8 % (12.1-15.1) 05/19/23 14:02 Plt Count 197 10^3/cmm (157-399) 05/19/23 14:02 MPV 8.6 fL (7.4-10.4) 05/19/23 14:02 Neut % (Auto) 55.9 % 05/19/23 14:02 Lymph % (Auto) 31.0 % 05/19/23 14:02 [place] % (Auto) 10.1 % 05/19/23 14:02 Eos % (Auto) 2.5 % 05/19/23 14:02 Baso % (Auto) 0.3 % 05/19/23 14:02 Neut # (Auto) 3.42 10^3/uL (1.8-7.7) 05/19/23 14:02 Lymph # (Auto) 1.9 10^3/uL (0.8-4.8) 05/19/23 14:02 [place] # (Auto) 0.6 10^3/uL (0.2-0.9) 05/19/23 14:02 Eos # (Auto) 0.2 10^3/uL (0.0-0.8) 05/19/23 14:02 Baso # (Auto) 0.0 10^3/uL (0.0-0.1) 05/19/23 14:02 Nucleated RBC % (auto) 0 % 05/19/23 14:02 Nucleated RBCs # 0.0 /100WBC 05/19/23 14:02 D-Dimer 0.63 ug/mLFEU (0-0.59) H 05/19/23 14:02 Sodium 138 mmol/L (136-145) 05/19/23 14:02 Potassium 3.4 mmol/L (3.5-5.1) L 05/19/23 14:02 Chloride 101 mmol/L (98-107) 05/19/23 14:02 Carbon Dioxide 20 mmol/L (22-29) L 05/19/23 14:02 Anion Gap 20.4 (5-19) H 05/19/23 14:02 BUN 24 mg/dL (8-23) H 05/19/23 14:02 Creatinine 1.3 mg/dL (0.7-1.2) H 05/19/23 14:02 GFR Calculation Not Reportable 05/19/23 14:02 Glucose 167 mg/dL (65-115) H 05/19/23 14:02 Calculated Osmolality 294 mOsm/kg (285-295) 05/19/23 14:02 Calcium 9.8 mg/dL (8.5-10.5) 05/19/23 14:02 Total Bilirubin 0.6 mg/dL (0.15-1.2) 05/19/23 14:02 AST 17 U/L (0-40) 05/19/23 14:02 ALT 15 U/L (0-41) 05/19/23 14:02 Alkaline Phosphatase 86 U/L (40-130) 05/19/23 14:02 Creatine Kinase 73 U/L (39-308) 05/19/23 14:02 NT-Pro-B Natriuret Pep 182 pg/mL (0-450) 05/19/23 14:02 Total Protein 7.1 g/dL (6.6-8.7) 05/19/23 14:02 Albumin 4.4 g/dL (3.5-5.2) 05/19/23 14:02 Globulin 2.7 g/dL (1.3-4.6) 05/19/23 14:02 All radiology interpretation(s) finalized by discharge Discharge Plan Discharge Patient Disposition: Admitted As Inpatient Admit Provider: Elian Mcguire Clinical Impression: Embolism of left vertebral artery, Cerebrovascular accident (CVA) involving posterior circulation Condition: Stable Discharge Diet: Regular, Cardiac and Resume prior tube feeds Discharge Activity: Resume usual activity, Increase activity as tolerated and Oxygen as instructed Coding Level of Care Code ED Marketer for Bj Campuzano
[2023-05-19 15:32] LABS: D Dimer 0.63 ug/mLFEU (0-0.59)
[2023-05-19 15:34] LABS: Creatine Phosphokinase 73 U/L (39-308)
--- NOTE | 2023-05-19 15:42 | ECG_ITS ---
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 Measurements Intervals [place] Rate: 48 P: 57 WI: 233 QRS: 21 QRSD: 94 T: 35 QT: 475 QTc: 425 Interpretive Statements SINUS BRADYCARDIA WITH FIRST DEGREE AV BLOCK WITH OCCASIONAL SUPRAVENTRICULAR PREMATURE COMPLEXES Compared to ECG 08/15/2022 09:17:17 No significant changes Electronically Signed On 05-19-2023 16:25:35 CDT by Renata Umanzor M.D. [id number]
--- NOTE | 2023-05-19 15:51 | CTR_ITS ---
PROCEDURE INFORMATION: Exam: CTA Head With Contrast, Arteriography Exam date and time: 05/19/2023 4:14 PM Age: 77 years old Clinical indication: Dizziness and giddiness; Additional info: Dizziness, , n/v TECHNIQUE: Imaging protocol: Computed tomographic angiography of the head with contrast. Exam focused on the arteries. 3D rendering (Not supervised by radiologist): MIP and/or 3D reconstructed images were created by the technologist. Radiation optimization: All CT scans at this facility use at least one of these dose optimization techniques: automated exposure control; mA and/or kV adjustment per patient size (includes targeted exams where dose is matched to clinical indication); or iterative reconstruction. Contrast material: OMNIPAQUE; Contrast volume: 100 ml; Contrast route: INTRAVENOUS (IV); REPORTING DATA: Count of CT and Cardiac NM exams in prior 12 months: This patient has received [address] and 0 known cardiac nuclear medicine studies in the 12 months prior to the current study. COMPARISON: CT head wo con* [id number] 05/19/2023 2:46 PM RADIATION DOSE METRICS: Total DLP (mGy-cm): 489.32 FINDINGS: ANTERIOR CIRCULATION: Right internal carotid artery: Atherosclerotic changes right internal carotid with mild stenosis. Right middle cerebral artery: No occlusion or significant stenosis. No aneurysm. Right anterior cerebral artery: The right A2 segment of the KEYON is faintly and intermittently opacified just beyond its origin. There may be similar attenuation of a distal left KEYON branch for example on series 4, image 266. Left internal carotid artery: The left internal carotid has mild stenosis. Left middle cerebral artery: No occlusion or significant stenosis. No aneurysm. Left anterior cerebral artery: No occlusion or significant stenosis. No aneurysm. POSTERIOR CIRCULATION: Right vertebral artery: No occlusion or significant stenosis. No aneurysm. Left vertebral artery: The left vertebral artery is reconstituted in the distal V3/proximal V4 segment likely from collaterals. Basilar artery: The basilar artery has a fenestration in its mid to distal portion. Mild stenosis distally. Right posterior cerebral artery: The right [employer] has anatomic variant origin. Left posterior cerebral artery: No occlusion or significant stenosis. No aneurysm. Brain: No definite mass, mass effect, or midline shift. Cerebral ventricles: No ventriculomegaly. Bones/joints: Unremarkable. No acute fracture. Soft tissues: Unremarkable. PROCEDURE INFORMATION: Exam: CTA Neck With Contrast Exam date and time: 05/19/2023 4:14 PM Age: 77 years old Clinical indication: Dizziness and giddiness; Additional info: Dizziness, , n/v TECHNIQUE: Imaging protocol: Computed tomographic angiography of the neck with contrast. Exam focused on the cervical segments of the vasculature. 3D rendering (Not supervised by radiologist): MIP and/or 3D reconstructed images were created by the technologist. Radiation optimization: All CT scans at this facility use at least one of these dose optimization techniques: automated exposure control; mA and/or kV adjustment per patient size (includes targeted exams where dose is matched to clinical indication); or iterative reconstruction. Contrast material: OMNIPAQUE; Contrast volume: 100 ml; Contrast route: INTRAVENOUS (IV); REPORTING DATA: Count of CT and Cardiac NM exams in prior 12 months: This patient has received [address] and 0 known cardiac nuclear medicine studies in the 12 months prior to the current study. COMPARISON: CT neck w con* [id number] 12/27/2019 2:38 PM RADIATION DOSE METRICS: Total DLP (mGy-cm): 0.01 FINDINGS: Right common carotid artery: No stenosis. No dissection or occlusion. Right internal carotid artery: No stenosis of the extracranial segment. No dissection or occlusion. Right external carotid artery: No occlusion or stenosis of the origin. Left common carotid artery: No stenosis. No dissection or occlusion. Left internal carotid artery: Atherosclerotic changes left internal carotid artery with 30% stenosis proximally. Left external carotid artery: No occlusion or stenosis of the origin. Right vertebral artery: No stenosis. No dissection or occlusion. Left vertebral artery: The left vertebral artery is occluded just beyond its origin. Oral cavity: Previously reported mass in the tongue not well characterized with arterial phase imaging. Soft tissues: Normal. No significant soft tissue swelling. Bones/joints: Degenerative bony changes. CT/CT angio headneck* [id number] IMPRESSION: 1. The right A2 segment of the KEYON is faintly and intermittently opacified beyond its origin suspicious for possible thrombus. The distal left KEYON also appears mildly attenuated attenuated at the A3 segment level. Recommend clinical correlation. 2. The left V4 segment of the vertebral artery is reconstituted in its distal V3/proximal V4 segment likely from collaterals. IMPRESSION: 1. There is occlusion of the left vertebral artery just beyond its origin. The neck vessels are otherwise patent. 2. Previously reported mass in the tongue not well characterized by arterial phase imaging. Correlate clinically. REFERENCES: NASCET CRITERIA. The degree of stenosis in the cervical segment of the internal carotid artery is based on NASCET criteria. Normal is no stenosis. Mild is less than 50% stenosis. Moderate is 50-69% stenosis. Severe is 70% to 99% stenosis. Total occlusion is no detectable patent lumen.
[2023-05-19 16:04] LABS: NT Pro B Type Natriuretic Pept 182 pg/mL (0-450)
[2023-05-19] MEDS: iohexol 350 mg/mL 500 mL Btl (per mL) IV (16:13)
[2023-05-19] MEDS: ondansetron 2 mg/ML SDV 2 mL 4 MG IVP ×2 (17:51→20:12)
--- NOTE | 2023-05-19 18:58 | PM.HP ---
Providers/Chief Complaint Admitting Physician: Elian Mcguire DO Primary Care Provider: Reshma Feng MD Chief Complaint: DIZZINESS. ZEPEDA History of Present Illness Bryan Smith is a 77 year old male has been having dizzy spells for quite some time. Today however he had a severe attack and was unable to walk. Per the he was drifting to the right side. He is dizzy with his eyes open just lying in bed. He denies history of stroke or DE he has high blood pressure. Denies smoking. In the ED CT head with CTA head and neck show a right A2 segment that shows a possible thrombus and there also appears the distal left KEYON is attenuated. The left vertebral artery is occluded just beyond its origin. Patient is admitted for stroke work-up and stroke prevention Review of Systems Const: Denies: fever(s) or chills Eyes: Denies: change in vision ENMT: Denies: throat pain or nasal congestion Card: Denies: chest pain or palpitations Resp: Denies: dyspnea or productive cough GI: Denies: abdominal pain, nausea, vomiting or change in stool character : Denies: difficulty urinating or dysuria Musc: Denies: back pain or extremity pain Skin/Breast: Denies: rash or lesions Neuro: Reports: dizziness; Denies: headache(s) Psych: Denies: anxiety or depression [place]/Lymph: Denies: easy bruising or easy bleeding Medications/Allergies Home Medications Medication Instructions Recorded Confirmed Last Taken Type bisoprolol fumarate 5 mg tablet 10 mg PO DAILY 07/14/20 05/19/23 05/19/23 History finasteride 5 mg tablet (Proscar) 5 mg PO DAILY 07/14/20 05/19/23 05/19/23 History folic acid 1 mg tablet 1 mg PO DAILY 07/14/20 05/19/23 05/19/23 History gemfibrozil 600 mg tablet (Lopid) 300 mg PO BID 07/14/20 05/19/23 05/19/23 History multivitamin 1 tab PO DAILY 07/14/20 05/19/23 05/19/23 History tamsulosin 0.4 mg capsule 0.4 mg PO DAILY 07/14/20 05/19/23 05/18/23 History trazodone 150 mg tablet 150 mg PO DAILY 07/14/20 05/19/23 05/18/23 History levothyroxine 50 mcg capsule 75 mcg PO DAILY 02/19/21 05/19/23 05/19/23 History gabapentin 600 mg tablet See Rx Instructions .Route .COMPLEX 11/09/21 05/19/23 08/21/22 History Allergies Allergy/AdvReac Type Severity Reaction Status Date / Time No Known Allergies Allergy Verified 12/29/22 10:30 PFSH Acute PFSH: Medical History BPH loc w urin obs/LUTS Elevated PSA History of throat cancer Surgical History History of back surgery History of carpal tunnel release of both wrists History of varicose vein stripping Hx of appendectomy Hx of arthroscopy of right knee Hx of hemorrhoidectomy Status post right knee replacement Family History Father , AT AGE 87 CAD (coronary artery disease) Mother , AT AGE 91 Cancer COLON Social History Smoking and tobacco/nicotine status: never used tobacco/nicotine Alcohol intake: never Marital status: Current occupational status: retired Vitals/I&O/Wt Last Vital Signs Temp 98.6 F 05/19/23 14:25 Pulse 68 05/19/23 17:00 Resp 23 H 05/19/23 18:00 BP 169/96 05/19/23 18:00 Pulse Ox 91 05/19/23 18:00 O2 Del Method Room Air 05/19/23 16:29 Weight last 48 hrs Weight 97.522 kg Physical Exam Narrative: Elderly male in no acute distress. Appears well-hydrated well-nourished Neurologic: N IHSS is 0. No nystagmus. Cranial nerves II through XII are grossly intact. HEENT NC/AT, PERRLA,, E POLI no scleral icterus. Mucous membranes are moist and pink in the nasopharyngeal. Neck is supple no JVD or carotid bruits Chest rises symmetrically with inspiration Heart normal S1-S2 without murmurs clicks gallops or rubs Lungs clear to auscultation without wheezes rales or rhonchi Extremities no clubbing cyanosis or edema Psych mood and affect for situation Skin no lesions or or rashes noted Data 05/19/23 14:02 05/19/23 14:02 CT Head: Radiologist's impression: 1. No acute intracranial hemorrhage or edema. 2. Moderate atrophy. No prior infarct. Other CT: Radiologist's impression: CT/CT angio headneck* [id number] IMPRESSION: 1. ? The right A2 segment of the KEYON is faintly and intermittently opacified beyond its origin suspicious for possible thrombus.? The distal left KEYON also appears mildly attenuated attenuated at the A3 segment level.? Recommend clinical correlation. 2. ? The left V4 segment of the vertebral artery is reconstituted in its distal V3/proximal V4 segment likely from collaterals. ? ? IMPRESSION: 1. ? There is occlusion of the left vertebral artery just beyond its origin. The neck vessels are otherwise patent. 2. ? Previously reported mass in the tongue not well characterized by arterial phase imaging. Correlate clinically. CXR: My impression: No acute cardio pulmonary findings Radiologist's impression: Same EKG 1: EKG computer-generated impression: SINUS BRADYCARDIA WITH FIRST DEGREE AV BLOCK WITH OCCASIONAL SUPRAVENTRICULAR PREMATURE COMPLEXES A&P Assessment and plan (1) Cerebrovascular accident (CVA) involving posterior circulation: Allow permissive hypertension Stop home antihypertensive medications Dual platelet antithrombotic MRI/MRA head and neck Echo if no thrombus seen questionable KATHLEEN. (2) Acute ischemic multifocal anterior circulation stroke: Anterior cerebral artery circulation bilaterally (3) Frontoparietal cerebral atrophy: Seen on CT (4) Hypertension: Plan Allow permissive hypertension use hydralazine for BP greater than 180/110 Aspirin and Plavix MRI as above PT OT tomorrow Attestations Medical Necessity Statement*: Patient admitted for possible stroke 3 thromboses seen 1 vertebral artery and 2 in the anterior right and left anterior cerebral artery. Patient needs further work-up for diagnosis and close neurologic monitoring for any worsening of neurologic status. Coding Level of Care Code Acute Code for [facility] Fwd Diagnoses Cerebrovascular accident (CVA) involving posterior circulation I63.50 Acute ischemic multifocal anterior circulation stroke I63.529 Frontoparietal cerebral atrophy G31.9 Hypertension I10
[2023-05-19] MEDS: sodium chloride 0.9% 1,000 ML 100 ML IV (20:00)
[2023-05-19] MEDS: heparin 5,000 unit/mL INJ 1 mL 5000 UNIT SUBCUT (20:01)
[2023-05-19] MEDS: gabapentin 300 mg Capsule 600 MG PO (20:08)
[2023-05-19] MEDS: metoclopramide 5 mg/mL SDV 2 mL IVP (22:09)
[2023-05-20] VITALS (10 sets, daily range): BP systolic 116–210; BP diastolic 56–95; PULSE 72–90; RESP 16–20; TEMP 36.5–37.3; O2SAT 94–96
--- NOTE | 2023-05-20 00:57 | PC.NURSE ---
Patient answered correctly to month and time of day, but answered incorrectly to year.
[2023-05-20] MEDS: metoclopramide 5 mg/mL SDV 2 mL IVP ×2 (04:08→09:29)
[2023-05-20] MEDS: sodium chloride 0.9% 1,000 ML 100 ML IV ×2 (04:10→16:31)
[2023-05-20 05:17] LABS: Basophils % 0.2 %; Hematocrit 44.5 % (37-53); Lymphocytes # 0.7 10^3/uL (0.8-4.8); Lymphocytes % 10.9 %; Mean Corpuscular HGB Conc 34.8 g/dL (30-55); Mean Corpuscular Hemoglobin 31.7 pg (27-33); Monocytes # 0.3 10^3/uL (0.2-0.9); Monocytes % 4.2 %; Neutrophils # 5.55 10^3/uL (1.8-7.7); Neutrophils % 84.2 %; Nucleated Red Blood Cells % 0 %; Platelet Count 252 10^3/cmm (157-399); Red Blood Count 4.89 10^6/uL (3.85-5.65); Red Cell Distribution Width 12.8 % (12.1-15.1); White Blood Count 6.59 10^3/uL (3.29-11.43)
[2023-05-20 05:34] LABS: Estmated Average Glucose 114; Hemoglobin A1C 5.6 % (4.0-6.0)
--- NOTE | 2023-05-20 06:00 | USCV_ITS ---
Bryan Smith Age: 77 Gender: M : 1945 Exam Date: 05/20/2023 10:08 Ordering Phys: Elian Mcguire DO Technologist: Arron Carrasco Exam Location: [facility] [place] Indication: embolic stroke BP: 164 / 87 HR: 76 Rhythm: Sinus Technical Quality: Adequate MEASUREMENTS (Male / Female) Normal Values 2D ECHO LVOT Diameter 2.0 cm LV Ejection Fraction MOD 2C 71.9 % LV Ejection Fraction 2C AL 74.1 % LA Diameter 3.9 cm LA Width 3.8 cm LA Height 4.7 cm RA Width 3.0 cm RA Height 3.5 cm Aorta at Sinotubular Diameter 2.6 cm M-MODE Aortic Annulus Diameter 3.2 cm LA Ao Ratio MM 1.2 MV E Point Septal Separation 0.4 cm DOPPLER AV Peak Velocity 130.3 cm/s LVOT Peak Velocity 112.0 cm/s AV Area Cont Eq vti 3.0 cm squared AV Area Cont Eq pk 2.8 cm squared MV Peak Velocity 117.0 cm/s MV Area PHT 5.8 cm squared Mitral E to A Ratio 0.6 MV E' Velocity 32.0 cm/s Mitral E to MV E' Ratio 7.8 Mitral E to LV E' Lateral Ratio 6.7 Mitral E to LV E' Septal Ratio 9.6 TR Peak Velocity 256.1 cm/s TR Peak Gradient 26.2 mmHg TR Mean Velocity 191.9 cm/s TR Mean Gradient 16.5 mmHg TR Velocity Time Integral 61.9 cm Right Atrial Pressure 8.0 mmHg Pulmonary Artery Systolic Pressu 34.2 mmHg PV Peak Velocity 135.0 cm/s RV Acceleration Time 0.1 s RV Ejection Time 0.3 s RV AcT/ET 0.3 FINDINGS Left Ventricle Left ventricle is normal size. LV systolic function is normal with EF of 60 to 65%. No regional wall motion abnormalities are seen. Grade 1 diastolic dysfunction Right Ventricle Normal in size and function Right Atrium Normal in size Left Atrium Normal in size Mitral Valve Mild mitral annular calcification. Mild mitral regurgitation. Aortic Valve Aortic valve is mildly thickened. No significant stenosis. Mild aortic regurgitation. Tricuspid Valve Mild tricuspid regurgitation. Insufficient TR jet to calculate RVSP Pulmonic Valve Not well visualized Pericardium Normal Aorta Mildly dilated ascending aorta with diameter of 3.6cm. IVC Not well visualized CONCLUSIONS LV systolic function is normal with EF of 60 to 65%. Grade 1 diastolic dysfunction Mild mitral regurgitation Mild aortic regurgitation Mild tricuspid regurgitation Mildly dilated ascending aorta No comparison studies are available. Joseluis Gomez MD (Electronically Signed) Final Date: 20 May 2023 11:04 S
[2023-05-20 06:05] LABS: Chol HDL Ratio 5.46 mg/dL (1.0-5.00); Cholesterol 191 mg/dL (0-200); HDL Cholesterol 35 mg/dL (60-100); LDL Cholesterol Calculated 130 mg/dL (50-129); LDL HDL Ratio 3.71 RATIO (0.00-3.22); Triglycerides 130 mg/dL (0-150)
[2023-05-20] MEDS: ondansetron 2 mg/ML SDV 2 mL 4 MG IVP (06:08)
[2023-05-20 06:11] LABS: Anion Gap 19.9 (5-19); Blood Urea Nitrogen 21 mg/dL (8-23); Calcium 9.8 mg/dL (8.5-10.5); Carbon Dioxide 20 mmol/L (22-29); Chloride 101 mmol/L (98-107); Glucose 149 mg/dL (65-115); Osmolality Calculated 290 mOsm/kg (285-295); Potassium 3.9 mmol/L (3.5-5.1); Sodium 137 mmol/L (136-145); Thyroid Stimulating Hormone 2.91 uIU/mL (0.27-4.20)
--- NOTE | 2023-05-20 07:33 | MRR_ITS ---
PROCEDURE INFORMATION: Exam: MRA Head Without Contrast; Arteriography Exam date and time: 05/20/2023 8:36 AM Age: 77 years old Clinical indication: Dizziness and giddiness and vertigo and weakness; Additional info: Mca territory and vertebral artery stroke TECHNIQUE: Imaging protocol: Magnetic resonance angiography head without contrast. Ynqy-ck-dooagv (TOF) technique was utilized for this exam. Exam focused on the arteries. COMPARISON: CT angio headneck* [id number] 05/19/2023 4:14 PM FINDINGS: ANTERIOR CIRCULATION: Right internal carotid artery: Intracranial segment is patent with no significant stenosis. No aneurysm. Right middle cerebral artery: No occlusion or significant stenosis. No aneurysm. Right anterior cerebral artery: No occlusion or significant stenosis. No aneurysm. Left internal carotid artery: Intracranial segment is patent with no significant stenosis. No aneurysm. Left middle cerebral artery: No occlusion or significant stenosis. No aneurysm. Left anterior cerebral artery: No occlusion or significant stenosis. No aneurysm. POSTERIOR CIRCULATION: Right vertebral artery: No occlusion or significant stenosis. No aneurysm. Left vertebral artery: No occlusion or significant stenosis. No aneurysm. Basilar artery: No occlusion or significant stenosis. No aneurysm. Right posterior cerebral artery: No occlusion or significant stenosis. No aneurysm. Left posterior cerebral artery: No occlusion or significant stenosis. No aneurysm. MR/MR angio head wo con [id number] IMPRESSION: No stenosis or occlusion.
--- NOTE | 2023-05-20 07:33 | MRR_ITS ---
PROCEDURE INFORMATION: Exam: MR Head Without Contrast Exam date and time: 05/20/2023 8:09 AM Age: 77 years old Clinical indication: Alteration of consciousness and dizziness; Transient alteration of awareness; Additional info: Mca territory and vertebral artery stroke TECHNIQUE: Imaging protocol: Magnetic resonance imaging of the head without contrast. COMPARISON: CT head wo con* [id number] 05/19/2023 2:46 PM FINDINGS: Brain: There is a small to moderate-sized acute left cerebellar infarct. Additional tiny infarcts are seen in both cerebellar hemispheres. There is mild small vessel disease. There is no evidence of acute hemorrhage. Cerebral ventricles: Normal. No ventriculomegaly. Bones/joints: Unremarkable. Paranasal sinuses: There is mild paranasal sinus mucosal thickening. Mastoid air cells: Normal as visualized. No mastoid effusion. Orbital cavities: Unremarkable. Soft tissues: Unremarkable. MR/MR head wo con* [id number] IMPRESSION: 1. Small to moderate-sized acute left cerebellar infarct. 2. Tiny additional bilateral cerebellar infarcts.
--- NOTE | 2023-05-20 07:35 | MRR_ITS ---
PROCEDURE INFORMATION: Exam: MRA Neck With Contrast Exam date and time: 05/20/2023 12:19 PM Age: 77 years old Clinical indication: Dizziness and giddiness and drowsiness or somnolence and vertigo; Prior surgery; Surgery date: 6+ months; Surgery type: Throat cancer surgery; Additional info: Mca territory and vertebral artery stroke TECHNIQUE: Imaging protocol: Magnetic resonance angiography of the neck with contrast. Angiographic sequences such as Odbq-wi-lthzwa (TOF) or Time-resolved contrast techniques were performed. Contrast material: MULTIHANCE; Contrast volume: 20 ml; Contrast route: INTRAVENOUS (IV); COMPARISON: CT angio headneck* [id number] 05/19/2023 4:14 PM FINDINGS: Right common carotid artery: No stenosis. No dissection or occlusion. Moderate tortuosity of the right common carotid artery at the base of the neck (coronal series 1100 image 195), without focal stenosis. Right internal carotid artery: No stenosis of the extracranial segment. No dissection or occlusion. Right external carotid artery: No stenosis. No dissection or occlusion of the origin. Right vertebral artery: No stenosis. No dissection or occlusion. Left common carotid artery: No stenosis. No dissection or occlusion. Left internal carotid artery: No stenosis of the extracranial segment. No dissection or occlusion. Left external carotid artery: No stenosis. No dissection or occlusion of the origin. Left vertebral artery: Occluded at the origin. MR/MR angio neck w con* [id number] IMPRESSION: Occlusion of the left vertebral artery at the origin, unchanged. REFERENCES: NASCET CRITERIA. The degree of stenosis in the cervical segment of the internal carotid artery is based on NASCET criteria. Normal is no stenosis. Mild is less than 50% stenosis. Moderate is 50-69% stenosis. Severe is 70% to 99% stenosis. Total occlusion is no detectable patent lumen.
[2023-05-20] MEDS: heparin 5,000 unit/mL INJ 1 mL 5000 UNIT SUBCUT ×2 (09:29→19:27)
[2023-05-20] MEDS: hyDRALAzine 20 mg/mL INJ 1 mL 10 MG IVP (11:14)
--- NOTE | 2023-05-20 12:25 | PC.OT ---
OT orders received to evaluate and treat. OT went to evaluate patient. Pt. states he is still nauseous and can not participate in evaluation. Evaluation to be attempted tomorrow.
[2023-05-20] MEDS: ondansetron 2 mg/ML SDV 2 mL 8 MG IVP ×2 (13:45→19:33)
--- NOTE | 2023-05-20 15:12 | P.PN_ITS ---
Subjective Subjective: Bryan Smith is a 77 year old male has been having dizzy spells for quite some time.? Today however he had a severe attack and was unable to walk.? Per the he was drifting to the right side.? He is dizzy with his eyes open just lying in bed.? He denies history of stroke or [place] he has high blood pressure.? Denies smoking. In the ED CT head with CTA head and neck show a right A2 segment that shows a possible thrombus and there also appears the distal left KEYON is attenuated.? The left vertebral artery is occluded just beyond its origin.? Patient is admitted for stroke work-up and stroke prevention 05/20/2023: MRI of brain shows small to moderate-sized acute left cerebellar infarct and tiny additional bilateral cerebellar infarcts. The MRA of the head shows no stenosis or occlusion. MRA of the neck shows occlusion of the left vertebral artery at the origin. Also there is temporal frontal parietal cerebral atrophy noted on CT head. Patient has probably had longstanding cere brovascular disease. He remains very dizzy and nauseous. He did tolerate PT well today. His and 2 nieces are present at time of my interview Vitals/I&O/Wt Last Vital Signs Temp 98.1 F 05/20/23 12:00 Pulse 82 05/20/23 12:00 Resp 18 05/20/23 12:00 BP 181/91 05/20/23 12:00 Pulse Ox 95 05/20/23 11:10 O2 Del Method Room Air 05/20/23 03:45 05/20/23 05/20/23 05/20/23 06:59 14:59 22:59 Intake Total 916.667 / 916.667 Output Total 300 / 650 Balance 616.667 / 266.667 Weight last 48 hrs Weight 97.522 kg Weight 97.522 kg Physical Exam Narrative: Elderly male in no acute distress. Neurologic: N IHSS is 0. No nystagmus. Cranial nerves II through XII are grossly intact. Heart normal S1-S2 without murmurs clicks gallops or rubs Lungs clear to auscultation without wheezes rales or rhonchi Extremities no clubbing cyanosis or edema Data 05/20/23 04:38 05/20/23 04:38 MRI: Radiologist's impression: 1.? Small to moderate-sized acute left cerebellar infarct. ? 2.? Tiny additional bilateral cerebellar infarcts. ? MRA neck: Occlusion of the left vertebral artery at the origin, unchanged. A&P Assessment and plan (1) Cerebrovascular accident (CVA) involving posterior circulation: (2) Hypertension: (3) Frontoparietal cerebral atrophy: (4) Cerebellar infarction: (5) Cerebrovascular disease: (6) Occlusion of left vertebral artery: Plan Permissive hypertension IV fluids DP AT: Patient has been unable to take any pills due to nausea. I increased the Zofran to 8 mg and he has improved. We will try at least enteric-coated aspirin at this time otherwise patient will need per rectum. Therapies. Consideration for inpatient rehabilitation at [facility]. Attestations Medical Necessity Statement*: Patient's care will cross 2 midnights due to ischemic stroke. Coding Level of Care Code Acute Code for g Fwd Diagnoses Cerebrovascular accident (CVA) involving posterior circulation I63.50 Hypertension I10 Frontoparietal cerebral atrophy G31.9 Cerebellar infarction I63.9 Cerebrovascular disease I67.9 Occlusion of left vertebral artery I65.02
[2023-05-20] MEDS: aspirin 81 mg EC Tablet PO ×2 (16:26)
[2023-05-20] MEDS: meclizine 25 mg tablet PO ×3 (16:26→19:27)
[2023-05-20] MEDS: hyDRALAzine 20 mg/mL INJ 1 mL IVP (16:55)
[2023-05-20] MEDS: gemfibrozil 600 mg Tablet 300 MG PO (18:45)
[2023-05-20] MEDS: gabapentin 300 mg Capsule 600 MG PO (19:27)
[2023-05-20] MEDS: atorvastatin 40 mg Tablet 80 MG PO (19:27)
[2023-05-21] VITALS (8 sets, daily range): BP systolic 137–184; BP diastolic 69–87; PULSE 59–96; RESP 16–18; TEMP 36.4–37.2; O2SAT 93–97
[2023-05-21] MEDS: sodium chloride 0.9% 1,000 ML 100 ML IV (02:01)
[2023-05-21 04:26] LABS: Platelet Count 253 10^3/cmm (157-399)
[2023-05-21] MEDS: heparin 5,000 unit/mL INJ 1 mL 5000 UNIT SUBCUT ×2 (10:14→20:12)
[2023-05-21] MEDS: tamsulosin 0.4 mg Capsule PO (10:16)
[2023-05-21] MEDS: aspirin 81 mg EC Tablet PO (10:16)
[2023-05-21] MEDS: multivitamin therapeutic Tablet 1 TAB PO (10:16)
[2023-05-21] MEDS: levothyroxine 75 mcg Tablet PO (10:17)
[2023-05-21] MEDS: folic acid 1 mg Tablet PO (10:17)
[2023-05-21] MEDS: meclizine 25 mg tablet PO ×3 (10:17→20:12)
[2023-05-21] MEDS: finasteride 5 mg Tablet PO (10:17)
[2023-05-21] MEDS: clopidogrel 75 mg Tablet PO (10:17)
[2023-05-21] MEDS: gemfibrozil 600 mg Tablet 300 MG PO ×2 (10:59→18:05)
--- NOTE | 2023-05-21 12:01 | P.PN_ITS ---
Subjective Subjective: Bryan Smith is a 77 year old male has been having dizzy spells for quite some time.? Today however he had a severe attack and was unable to walk.? Per the he was drifting to the right side.? He is dizzy with his eyes open just lying in bed.? He denies history of stroke or [place] he has high blood pressure.? Denies smoking. In the ED CT head with CTA head and neck show a right A2 segment that shows a possible thrombus and there also appears the distal left KEYON is attenuated.? The left vertebral artery is occluded just beyond its origin.? Patient is admitted for stroke work-up and stroke prevention 05/20/2023: MRI of brain shows small to moderate-sized acute left cerebellar infarct and tiny additional bilateral? cerebellar infarcts.? The MRA of the head shows no stenosis or occlusion.? MRA of the neck shows occlusion of the left vertebral artery at the origin.? Also there is temporal frontal parietal cerebral atrophy noted on CT head.? Patient has probably had longstanding cerebrovascular disease. Remained very dizzy and nauseous. He did tolerate PT. 05/21/2023: Patient much improved. His nausea has resolved. He is only dizzy when he looks up. He may benefit from eyeglass prisms. The only person I know that does this is Dr. Thomas cobb, OD in the [facility]. Stop IV fluids. Allow permissive hypertension for another few days and then can consider starting his antihypertensives low-dose, taking 2 to 4 weeks to bring down to normal. Patient will probably not qualify for inpatient rehab but outpatient rehab is best. Vitals/I&O/Wt Last Vital Signs Temp 97.9 F 05/21/23 08:00 Pulse 63 05/21/23 08:00 Resp 16 05/21/23 08:00 BP 174/84 05/21/23 08:00 Pulse Ox 95 05/21/23 08:00 O2 Del Method Room Air 05/21/23 08:00 05/20/23 05/21/23 05/21/23 22:59 06:59 14:59 Intake Total 1000 / 1000 950 / 1950 Output Total 500 / 500 1100 / 1600 Balance 500 / 500 -150 / 350 Weight last 48 hrs Weight 97.522 kg Weight 97.522 kg Physical Exam Narrative: Elderly male in no acute distress. Neurologic: N IHSS is 0. No nystagmus. Cranial nerves II through XII are grossly intact. 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 Statin. May continue gemfibrozil Patient would likely benefit with at least OT as an outpatient. He may need referral to Dr. Thomas Nino for eyeglass prisms Attestations Medical Necessity Statement*: Patient's care will cross 2 midnights due to ischemic stroke Coding Level of Care Code Acute Code for [facility] Diagnoses Cerebrovascular accident (CVA) involving posterior circulation I63.50 Hypertension I10 Frontoparietal cerebral atrophy G31.9 Cerebellar infarction I63.9 Cerebrovascular disease I67.9 Occlusion of left vertebral artery I65.02
--- NOTE | 2023-05-21 12:49 | PC.OT ---
OT orders received to evaluate and treat. Pt. sitting in chair with three guests in room when therapist entered. Pt. recognizes therapist from prior hospitalization when he had surgery on his knee. Pt. very politely declines an OT evaluation stating that he does not need it. states the patient says he is only weak because he has not eaten. Evaluation not to be completed at pt's request.
[2023-05-21] MEDS: hyDRALAzine 20 mg/mL INJ 1 mL IVP (12:58)
[2023-05-21] MEDS: gabapentin 300 mg Capsule 600 MG PO (20:12)
[2023-05-21] MEDS: atorvastatin 40 mg Tablet 80 MG PO (20:12)
[2023-05-22] VITALS (9 sets, daily range): BP systolic 98–177; BP diastolic 63–94; PULSE 85–112; RESP 14–22; TEMP 36.4–37.3; O2SAT 92–97
[2023-05-22] MEDS: tamsulosin 0.4 mg Capsule PO (08:21)
[2023-05-22] MEDS: multivitamin therapeutic Tablet 1 TAB PO (08:21)
[2023-05-22] MEDS: finasteride 5 mg Tablet PO (08:21)
[2023-05-22] MEDS: levothyroxine 75 mcg Tablet PO (08:21)
[2023-05-22] MEDS: heparin 5,000 unit/mL INJ 1 mL 5000 UNIT SUBCUT ×2 (08:21→20:23)
[2023-05-22] MEDS: clopidogrel 75 mg Tablet PO (08:21)
[2023-05-22] MEDS: meclizine 25 mg tablet PO (08:22)
[2023-05-22] MEDS: folic acid 1 mg Tablet PO (08:22)
[2023-05-22] MEDS: gemfibrozil 600 mg Tablet 300 MG PO ×2 (08:22→17:54)
[2023-05-22] MEDS: acetaminophen 325 mg Tablet 650 MG PO (11:19)
--- NOTE | 2023-05-22 13:24 | CT_ITS ---
WS: [id number] CT HEAD TECHNIQUE: Noncontrast CT of the head obtained from the skullbase to the vertex. CLINICAL INFORMATION: Dizziness post stroke COMPARISON: MRI 05/20/2023 DLP: 1092.[address] scans at [facility] use at least one of these dose optimization techniques: automated e xposure control; mA and/or kV adjustment per patient size (includes targeted exams where dose is matc hed to clinical indication); or iterative reconstruction. FINDINGS: Again seen is the LEFT greater than RIGHT cerebellar infarcts as described on the recent MRI 05/20/20 23. Mild edema in the LEFT parasagittal cerebellum and cerebellar tonsil. Mild mass effect on the inf erior fourth ventricle. No hydrocephalus. Mild mass effect on the medulla at the foramen magnum. No s ignificant edema in the RIGHT cerebellum. Mild small vessel changes. Mild parenchymal volume loss. Intracranial vascular calcification. No othe r significant changes. IMPRESSION: 1. No intracranial hemorrhage. 2. Expected evolution of the LEFT greater than RIGHT cerebellar infarcts with edema in the LEFT rené sphere and cerebellar tonsil. 3. Mild mass effect on the inferior fourth ventricle and LEFT brain stem. No hydrocephalus. 4. No significant edema in the RIGHT cerebellum. 5. No other significant changes.
--- NOTE | 2023-05-22 14:41 | PC.SOCIAL ---
PG 2 IMM Explained to pt Pg 2 IMM. No questions voiced. Provided pt a copy. Initialed, dated, & timed a copy & placed in chart.
[2023-05-22] MEDS: amlodipine 5 mg Tablet PO (14:52)
--- NOTE | 2023-05-22 15:22 | PM.PN ---
Subjective Subjective: Hospital course, labs appreciated. Seen with at bedside. Patient states he was feeling better and has been doing better but around lunchtime started having extreme dizziness with nausea that did not have vomiting. is worried about patient having extreme dizziness again. Patient himself denies any weakness but complains of dizziness. We discussed that unfortunately dizziness is most likely from cerebellar stroke and should improve very gradually. Also discussed possibility of mild hemorrhagic conversion given elevated blood pressures. Discussed we will plan for a CT head to rule out hemorrhagic conversion or further evolution of stroke and will go for stricter blood pressure control. Both and patient verbalized understanding. Blood work appreciated for stable CMP. CBC not done today. Vitals/I&O/Wt Last Vital Signs Temp 97.6 F 05/22/23 08:06 Pulse 86 05/22/23 11:22 Resp 16 05/22/23 11:22 BP 175/94 05/22/23 11:22 Pulse Ox 94 05/22/23 11:22 O2 Del Method Room Air 05/22/23 11:22 05/22/23 05/22/23 05/22/23 06:59 14:59 22:59 Intake Total 1600 / 1600 Output Total 250 / 250 Balance -250 / 830 1600 / 1600 Physical Exam Narrative: Elderly male in no acute distress. Neurologic: N IHSS is 0. No nystagmus. Cranial nerves II through XII are grossly intact. Heart normal S1-S2 without murmurs clicks gallops or rubs Lungs clear to auscultation without wheezes rales or rhonchi Extremities no clubbing cyanosis or edema Data 05/23/23 05:10 05/23/23 05:10 A&P Assessment and plan (1) Cerebrovascular accident (CVA) involving posterior circulation: Left cerebellar stroke with left posterior artery occlusion at origin. Appreciate MRI MRA head and neck results. Continue with Plavix, statin. Appreciate A1c, lipid panel results. Appreciate echocardiogram with normal EF with no regional wall motion abnormality, grade 1 diastolic dysfunction. Persistent dizziness will repeat CT head to rule out hemorrhagic conversion versus mass effect goal blood pressure less than 140/90 mmHg now. Will start on antihypertensives. (2) Hypertension: Stricter blood pressure control now. Start on amlodipine 10 mg daily. Uptitrate as for goal blood pressures. (3) Frontoparietal cerebral atrophy: Seen on CT (4) Cerebellar infarction: (5) Cerebrovascular disease: (6) Occlusion of left vertebral artery: Plan Dizziness: CT head as above. Change meclizine to 50 mg 3 times daily as needed. Decrease dose of gabapentin. Continue with physical therapy. Full code Regular diet Heparin 5000-12 hourly for DVT prophylaxis Attestations Medical Necessity Statement*: Requires further hospitalization for management of severe dizziness in setting of cerebellar infarct Diagnoses Cerebrovascular accident (CVA) involving posterior circulation I63.50 Hypertension I10 Frontoparietal cerebral atrophy G31.9 Cerebellar infarction I63.9 Cerebrovascular disease I67.9 Occlusion of left vertebral artery I65.02
[2023-05-22] MEDS: trazodone 100 mg Tablet PO (20:23)
[2023-05-22] MEDS: atorvastatin 40 mg Tablet 80 MG PO (20:23)
[2023-05-23] MEDS: meclizine 25 mg tablet 50 MG PO ×4 (00:47→22:03)
[2023-05-23 04:48] VITALS: BP 96/65; PULSE 92; RESP 20; TEMP 37; O2SAT 95
[2023-05-23 05:33] LABS: Basophils % 0.4 %; Eosinophils # 0.1 10^3/uL (0.0-0.8); Eosinophils % 0.9 %; Lymphocytes # 1.5 10^3/uL (0.8-4.8); Mean Corpuscular HGB Conc 34.4 g/dL (30-55); Mean Corpuscular Hemoglobin 31.6 pg (27-33); Mean Corpuscular Volume 91.7 fl (82-101); Mean Platelet Volume 8.3 fL (7.4-10.4); Monocytes # 0.7 10^3/uL (0.2-0.9); Monocytes % 12.9 %; Neutrophils # 3.27 10^3/uL (1.8-7.7); Neutrophils % 58.4 %; Nucleated Red Blood Cells % 0 %; Platelet Count 215 10^3/cmm (157-399); Red Blood Count 4.69 10^6/uL (3.85-5.65); Red Cell Distribution Width 13.2 % (12.1-15.1); White Blood Count 5.59 10^3/uL (3.29-11.43)
[2023-05-23 05:56] LABS: Alanine Aminotransferase 21 U/L (0-41); Alkaline Phosphatase 77 U/L (40-130); Anion Gap 13.8 (5-19); Aspartate Amino Transferase 25 U/L (0-40); Blood Urea Nitrogen 24 mg/dL (8-23); Calcium 9.4 mg/dL (8.5-10.5); Carbon Dioxide 21 mmol/L (22-29); Chloride 106 mmol/L (98-107); Globulin 2.5 g/dL (1.3-4.6); Glucose 106 mg/dL (65-115); Osmolality Calculated 288 mOsm/kg (285-295); Potassium 3.8 mmol/L (3.5-5.1); Sodium 137 mmol/L (136-145); Total Bilirubin 0.7 mg/dL (0.15-1.2); Total Protein 6.5 g/dL (6.6-8.7)
[2023-05-23 07:49] VITALS: BP 149/87; PULSE 89; RESP 19; TEMP 36.5; O2SAT 95
[2023-05-23 08:00] VITALS: BP 149/87; PULSE 89; RESP 19; TEMP 36.5
--- NOTE | 2023-05-23 08:13 | P.CONIM_ITS ---
Providers/Reason For Consult Consulting Physician/Specialty*: Dr. Jeremy Flores Reason for Consult*: Cerebellar edema following stroke Attending Physician: Jeremy Flores MD Primary Care Provider: Reshma Feng MD History of Present Illness History of Present Illness Bryan Smith is a 77 year old man who had a left cerebellar stroke on MondayMay 19. He was getting ready to go to a parade around 1:00 in the afternoon when he is suddenly became severely dizzy and he vomited. He had terrible headache. He went to the emergency department at 1425 and was initially managed by Jahaira Craven and then Mary Arora. Stroke team was not alerted. He told Dr. Lobo that his symptoms have been present for several days but suddenly worse. CT scan of the head was reported at 1526 and was negative. By the following day, his MRI scan showed an acute left cerebellar infarct. He has been dizzy ever since onset of his symptoms. Sent him home yesterday but he was so dizzy that Dr. Perez became concerned and his CAT scan of the head showed moderate edema in the left cerebellum with some impression on the yanet. I reviewed the CAT scan yesterday afternoon and saw the patient this morning. He has no previous history of stroke. He has no trouble swallowing. He still has a severe headache behind the eyes. He has gait ataxia but can walk with a wa lker. No diplopia. No sensory loss. He feels weak all over. He is a difficult historian. He told me that he been having symptoms off and on for 3 weeks before the abrupt onset of his severe dizziness that brought him to the hospital. His symptoms included dizziness and headache for 3 weeks. CTA 1. ? The right A2 segment of the KEYON is faintly and intermittently opacified beyond its origin suspicious for possible thrombus.? The distal left KEYON also appears mildly attenuated attenuated at the A3 segment level.? Recommend clinical correlation. 2. ? The left V4 segment of the vertebral artery is reconstituted in its distal V3/proximal V4 segment likely from collaterals. ? ? 05/19/2023 MRA head 1. ? There is occlusion of the left vertebral artery just beyond its origin. The neck vessels are otherwise patent. 2. ? Previously reported mass in the tongue not well characterized by arterial phase imaging. Correlate clinically. ANTERIOR CIRCULATION: Right internal carotid artery: Intracranial segment is patent with no significant stenosis. No aneurysm. Right middle cerebral artery: No occlusion or significant stenosis. No aneurysm. Right anterior cerebral artery: No occlusion or significant stenosis. No aneurysm. Left internal carotid artery: Intracranial segment is patent with no significant stenosis. No aneurysm. Left middle cerebral artery: No occlusion or significant stenosis. No aneurysm. Left anterior cerebral artery: No occlusion or significant stenosis. No aneurysm. POSTERIOR CIRCULATION: Right vertebral artery: No occlusion or significant stenosis. No aneurysm. Left vertebral artery: No occlusion or significant stenosis. No aneurysm. Basilar artery: No occlusion or significant stenosis. No aneurysm. Right posterior cerebral artery: No occlusion or significant stenosis. No aneurysm. Left posterior cerebral artery: No occlusion or significant stenosis. No aneurysm. MR/MR angio head wo con [id number] IMPRESSION: No stenosis or occlusion. MRA Neck 05/20/23 Occlusion of the left vertebral artery at the origin, unchanged. Roman Crooks MD ? Review of Systems Const: Denies: fever(s), change in weight or fatigue Eyes: Denies: change in vision, blurry vision, blind spots, photophobia, eye discomfort, seeing flashes or other (Glaucoma) ENMT: Denies: odynophagia, hoarseness, change in hearing, tinnitus, sinus pain or other (Loss of taste/smell) Card: Denies: chest pain, palpitations, syncope or other (Calf cramps) Resp: Denies: dyspnea, non-productive cough, wheezing or hemoptysis GI: Denies: abdominal pain, nausea, heartburn, diarrhea, constipation or hematochezia : Denies: urinary frequency or urinary incontinence Musc: Reports: back pain, extremity pain (chronic pain in the knees), joint pain, joint stiffness and muscle weakness; Denies: neck pain or other (Muscle pain) Skin/Breast: Denies: rash, new lesions or breast mass Neuro: Reports: headache(s), weakness in extremities, lack of coordination, difficulty walking, dizziness, vertigo and other (Sleep Apnea); Denies: numbness in extremities, sensory changes, confusion, Slurred speech present or seizure-like activity Psych: Denies: depression, irritability, memory loss, difficulty concentrating or other (Personality Changes) Endo: Denies: polyuria, polydipsia, excessive sweating or change in body appearance Ottoniel/Lymph: Denies: easy bruising, easy bleeding or enlarged lymph nodes Medications/Allergies Home Medications Medication Instructions Recorded Confirmed Last Taken Type bisoprolol fumarate 5 mg tablet 10 mg PO DAILY 07/14/20 05/19/23 05/19/23 History finasteride 5 mg tablet (Proscar) 5 mg PO DAILY 07/14/20 05/19/23 05/19/23 H istory folic acid 1 mg tablet 1 mg PO DAILY 07/14/20 05/19/23 05/19/23 History gemfibrozil 600 mg tablet (Lopid) 300 mg PO BID 07/14/20 05/19/23 05/19/23 History multivitamin 1 tab PO DAILY 07/14/20 05/19/23 05/19/23 History tamsulosin 0.4 mg capsule 0.4 mg PO DAILY 07/14/20 05/19/23 05/18/23 History trazodone 150 mg tablet 150 mg PO DAILY 07/14/20 05/19/23 05/18/23 History levothyroxine 50 mcg capsule 75 mcg PO DAILY 02/19/21 05/19/23 05/19/23 History gabapentin 600 mg tablet See Rx Instructions .Route .COMPLEX 11/09/21 05/19/23 08/21/22 History Allergies Allergy/AdvReac Type Severity Reaction Status Date / Time No Known Allergies Allergy Verified 12/29/22 10:30 Current Medications Generic Name Dose Route Start Last Admin Trade Name Geovannyq PRN Reason Stop Dose Admin Acetaminophen 650 mg 05/19/23 18:47 05/22/23 11:19 Acetaminophen 325 Mg Tablet PO 650 mg Q6H PRN Administration Mild/Mod Pain Or Temp >/= 101 Amlodipine Besylate 5 mg 05/22/23 13:25 05/22/23 14:52 Amlodipine 5 Mg Tablet PO 5 mg DAILY KITTY Administration Aspirin 81 mg 05/20/23 09:00 05/21/23 10:16 Aspirin 81 Mg Ec Tablet PO 81 mg DAILY KITTY Administration Atorvastatin Calcium 80 mg 05/20/23 21:00 05/22/23 20:23 Atorvastatin 40 Mg Tablet PO 80 mg BEDTIME KITTY Administration Clopidogrel Bisulfate 75 mg 05/20/23 09:00 05/22/23 08:21 Clopidogrel 75 Mg Tablet PO 75 mg DAILY KITTY Administration Finasteride 5 mg 05/20/23 09:00 05/22/23 08:21 Finasteride 5 Mg Tablet PO 5 mg DAILY KITTY Administration Folic Acid 1 mg 05/20/23 09:00 05/22/23 08:22 Folic Acid 1 Mg Tablet PO 1 mg DAILY KITTY Administration Gabapentin 200 mg 05/22/23 18:00 05/22/23 17:56 Gabapentin 100 Mg Capsule PO Not Given BID KITTY Gemfibrozil 300 mg 05/20/23 09:00 05/22/23 17:54 Gemfibrozil 600 Mg Tablet PO 300 mg BID KITTY Administration Heparin Sodium (Porcine) 5,000 unit 05/20/23 08:00 05/22/23 20:23 Heparin 5,000 Unit/Ml Inj 1 Ml SUBCUT 5,000 unit Q12H KITTY Administration Levothyroxine Sodium 75 mcg 05/20/23 09:00 05/22/23 08:21 Levothyroxine 75 Mcg Tablet PO 75 mcg DAILY KITTY Administration Meclizine HCl 50 mg 05/22/23 13:26 05/23/23 00:47 Meclizine 25 Mg Tablet PO 50 mg TID PRN Administration Dizziness Multivitamins Therapeutic 1 tab 05/20/23 09:00 05/22/23 08:21 Multivitamin Therapeutic Tablet PO 1 tab DAILY KITTY Administration Ondansetron HCl 8 mg 05/20/23 13:05 05/20/23 19:33 Ondansetron 2 Mg/Ml Sdv 2 Ml IVP 8 mg Q6H PRN Administration NAUSEA AND VOMITING Tamsulosin HCl 0.4 mg 05/20/23 09:00 05/22/23 08:21 Tamsulosin 0.4 Mg Capsule PO 0.4 mg DAILY KITTY Administration Trazodone HCl 100 mg 05/22/23 21:00 05/22/23 20:23 Trazodone 100 Mg Tablet PO 100 mg BEDTIME KITTY Administration PFSH Acute PFSH: Medical History BPH loc w urin obs/LUTS Elevated PSA History of throat cancer Surgical History History of back surgery History of carpal tunnel release of both wrists History of varicose vein stripping Hx of appendectomy Hx of arthroscopy of right knee Hx of hemorrhoidectomy Status post right knee replacement Family History Father , AT AGE 87 CAD (coronary artery disease) Mother , AT AGE 91 Cancer COLON Social History Smoking and tobacco/nicotine status: never used tobacco/nicotine Alcohol intake: never Marital status: Current occupational status: retired Vitals/I&O/Wt Last Vital Signs Temp 97.7 F 05/23/23 07:49 Pulse 89 05/23/23 07:49 Resp 19 H 05/23/23 07:49 BP 149/87 05/23/23 07:49 Pulse Ox 95 05/23/23 07:49 O2 Del Method Room Air 05/23/23 07:49 05/22/23 05/23/23 05/23/23 22:59 06:59 14:59 Intake Total 240 / 1840 Output Total 200 / 200 Balance 40 / 1640 Physical Exam Narrative: GENERAL: The patient was well-nourished with a healthy appearance and a ppropriately groomed. MENTAL STATUS: Orientation was full to 10 of 10 questions of orientation. S peech was fluent without word hesitation. No difficulty following a complex command. The affect was euthymic. CRANIAL NERVES: Visual acuity was intact to reading small print. Visual resendiz were full to confrontation, direct and consensual. Extraocular movements were full without nystagmus. Both slow pursuit and saccadic eye movements were normal. PERRLA. Face was symmetric at rest and with grimace. Facial sensation was intact in all three distributions of the fifth cranial nerve bilaterally to touch. Hearing was intact to loud spoken voice. Tongue and palate were midline at rest and with protrusion of the tongue and elevation of the palate. Shoulders were symmetric at rest and with shoulder shrug. MOTOR: There was no drift of the extended arms. Fine movements in the hands were rapid and symmetric. Toe tapping was rapid and symmetric. Power was 5/5 in all the muscles of all four extremities tested individually. Generalized weakness with no focality. SENSATION: Vibratory sensation intact in the four extremities distally. COORDINATION: He has a wide-based but he is able to walk with a walker. No appendicular ataxia on [id number] or [id number]. DEEP TENDON REFLEXES: 2/4 throughout. GAIT: He is able to stand and march in place on the walker. I did not take him down the silva but he says he has been walking. HEENT: Normocephalic without dysmorphic features. Conjunctivae were not injected and sclerae were nonicteric. NECK: Carotid upstroke was strong bilaterally without bruits. The thyroid was not enlarged and there were no palpable lymph nodes. CHEST: Clear to auscultation. CARDIOVASCULAR: The heart sounds were normal without murmur or gallop. Regular rate and rhythm. EXTREMITIES: He has stiff knees from arthritis. Data 05/23/23 05:10 05/23/23 05:10 MRI: My impression: I reviewed his original CAT scan from 05/19/2023. There was no sign of swelling in the left cerebellum. His CTA showed a left vertebral occlusion. The following day his MRI showed a left cerebellar infarct of fairly small size. By the time of his CAT scan 05/22/2023 there was edema in the left cerebellum and slight compression of the yanet A&P Assessment and plan (1) Occlusion of left vertebral artery: Is an unfortunate 77-year-old man who presents with a left vertebral artery occlusion with an acute left cerebellar infarct consistent with posterior inferior cerebellar artery. He has severe dizziness which is typical for this disorder and may persist for some time. He is able to walk, swallow and his speech is not impaired. The cerebellar edema could continue to advance and probably to be watched closely. He does not feel very comfortable this morning and it would be reasonable to keep him for another day and scan him again tomorrow morning to make sure that this lesion is not further compressing his yanet. He will need home health physical therapy after discharge. I will plan to see him back in my office within 2 weeks.. 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
[2023-05-23] MEDS: tamsulosin 0.4 mg Capsule PO (08:27)
[2023-05-23] MEDS: LORazepam 0.5 mg Tablet PO (08:27)
[2023-05-23] MEDS: gabapentin 100 mg Capsule 200 MG PO ×2 (08:27→18:00)
[2023-05-23] MEDS: levothyroxine 75 mcg Tablet PO (08:28)
[2023-05-23] MEDS: multivitamin therapeutic Tablet 1 TAB PO (08:28)
[2023-05-23] MEDS: gemfibrozil 600 mg Tablet 300 MG PO ×2 (08:28→18:00)
[2023-05-23] MEDS: amlodipine 5 mg Tablet PO (08:28)
[2023-05-23] MEDS: finasteride 5 mg Tablet PO (08:28)
[2023-05-23] MEDS: folic acid 1 mg Tablet PO (08:28)
[2023-05-23] MEDS: clopidogrel 75 mg Tablet PO (08:28)
[2023-05-23] MEDS: heparin 5,000 unit/mL INJ 1 mL 5000 UNIT SUBCUT ×2 (08:30→21:59)
[2023-05-23] MEDS: aspirin 81 mg EC Tablet PO (08:30)
[2023-05-23 12:00] VITALS: BP 126/78; PULSE 84; RESP 20; TEMP 36.6; O2SAT 94
--- NOTE | 2023-05-23 15:05 | CTR_ITS ---
PROCEDURE INFORMATION: Exam: CT Head Without Contrast Exam date and time: 05/23/2023 9:37 PM Age: 77 years old Clinical indication: Other: Post stroke followup; Additional info: Post stroke edema, dizzines TECHNIQUE: Imaging protocol: Computed tomography of the head without contrast. Radiation optimization: All CT scans at this facility use at least one of these dose optimization techniques: automated exposure control; mA and/or kV adjustment per patient size (includes targeted exams where dose is matched to clinical indication); or iterative reconstruction. REPORTING DATA: Count of CT and Cardiac NM exams in prior 12 months: This patient has received 4 known CTs and 0 known cardiac nuclear medicine studies in the 12 months prior to the current study. COMPARISON: CT head wo con* [id number] 05/22/2023 2:37 PM RADIATION DOSE METRICS: Total DLP (mGy-cm): 1125.48 FINDINGS: Brain: Infarction in the left cerebellum redemonstrated and similar in size and appearance to the prior head CT dated 05/22/2023. Minimal petechial hemorrhage may be present but there is no hemorrhagic conversion. Cerebral ventricles: No ventriculomegaly. Paranasal sinuses: Visualized sinuses are unremarkable. No fluid levels. Mastoid air cells: Visualized mastoid air cells are well aerated. Bones/joints: Unremarkable. No acute fracture. Soft tissues: Unremarkable. CT/CT head wo con* [id number] IMPRESSION: Infarction in the left cerebellum redemonstrated and similar in size and appearance to the prior head CT dated 05/22/2023. Minimal petechial hemorrhage may be present but there is no hemorrhagic conversion. No mass effect or midline shift.
--- NOTE | 2023-05-23 15:11 | PM.PN ---
Subjective Subjective: No acute events overnight. Patient has remained hemodynamically stable and afebrile. Patient continues to have significant dizziness which is concerning to the patient. Denies any nausea. Blood work shows stable CBC and CMP showing stable creatinine and electrolytes. CT head from yesterday appreciated for evolution of stroke with possible mass effect secondary to edema on the left brainstem Vitals/I&O/Wt Last Vital Signs Temp 97.9 F 05/23/23 12:00 Pulse 84 05/23/23 12:00 Resp 20 H 05/23/23 12:00 BP 126/78 05/23/23 12:00 Pulse Ox 94 05/23/23 12:00 O2 Del Method Room Air 05/23/23 12:00 05/23/23 05/23/23 05/23/23 06:59 14:59 22:59 Intake Total 720 / 720 Balance 720 / 720 Physical Exam Narrative: Elderly male in no acute distress. Neurologic: N IHSS is 0. No nystagmus. Cranial nerves II through XII are grossly intact. Heart normal S1-S2 without murmurs clicks gallops or rubs Lungs clear to auscultation without wheezes rales or rhonchi Extremities no clubbing cyanosis or edema Data 05/23/23 05:10 05/23/23 05:10 A&P Assessment and plan (1) Cerebrovascular accident (CVA) involving posterior circulation: Left cerebellar stroke with left posterior artery occlusion at origin. Appreciate MRI MRA head and neck results. Continue with Plavix, statin. Appreciate A1c, lipid panel results. Appreciate echocardiogram with normal EF with no regional wall motion abnormality, grade [address] head shows expected evolution of left greater than right cerebellar infarcts with edema in the left hemisphere and caliber right tonsil with mild mass effect on inferior fourth ventricle and left brainstem. Appreciate neurology recommendations. Plan for repeat CT scan today and tomorrow for further monitoring of mass effect. (2) Hypertension: Stricter blood pressure control now. Blood pressure is better controlled. Continue with amlodipine 5 mg daily. Uptitrate as for goal blood pressures. (3) Frontoparietal cerebral atrophy: Seen on CT (4) Cerebellar infarction: (5) Cerebrovascular disease: (6) Occlusion of left vertebral artery: Plan Dizziness: CT head as above. Change meclizine to 50 mg 3 times daily as needed. Decrease dose of gabapentin. Continue with physical therapy. Full code Regular diet Heparin 5000-12 hourly for DVT prophylaxis Attestations Medical Necessity Statement*: Requires further hospitalization for management of severe dizziness in setting of cerebellar stroke with left brainstem mass effect Diagnoses Cerebrovascular accident (CVA) involving posterior circulation I63.50 Hypertension I10 Frontoparietal cerebral atrophy G31.9 Cerebellar infarction I63.9 Cerebrovascular disease I67.9 Occlusion of left vertebral artery I65.02
[2023-05-23 16:00] VITALS: BP 125/72; BP 131/76; PULSE 85; PULSE 95; RESP 18; TEMP 36.5; TEMP 37.2; O2SAT 94
[2023-05-23 19:45] VITALS: BP 125/72; PULSE 95; RESP 18; TEMP 37.2; O2SAT 93
[2023-05-23] MEDS: atorvastatin 40 mg Tablet 80 MG PO (21:59)
[2023-05-23] MEDS: trazodone 100 mg Tablet PO (21:59)
[2023-05-24] VITALS (9 sets, daily range): BP systolic 89–143; BP diastolic 55–78; PULSE 66–84; RESP 15–18; TEMP 36.6–37.2; O2SAT 94–98
--- NOTE | 2023-05-24 08:00 | CT_ITS ---
WS: [id number] CT HEAD TECHNIQUE: Noncontrast CT of the head obtained from the skullbase to the vertex. CLINICAL INFORMATION: Stroke, dizziness COMPARISON: CT 05/23/2023 DLP: 1085.[address] scans at [facility] use at least one of these dose optimization techniques: automated e xposure control; mA and/or kV adjustment per patient size (includes targeted exams where dose is matc hed to clinical indication); or iterative reconstruction. FINDINGS: Expected evolution of the previously described inferior LEFT cerebellar infarct. Mild localized mass effect. No hydrocephalus. No evidence of hemorrhagic conversion. Mild crowding at the foramen magnum. Minimal mass effect on the medulla. Additional smaller infarct seen in the RIGHT cerebellum unchange d. Mild small vessel changes. Moderate parenchymal volume loss. No other interval changes. IMPRESSION: 1. No evidence of intracranial hemorrhage 2. Expected evolution of the LEFT cerebellar infarct with edema in the LEFT hemisphere and tonsil. M ild mass effect on the dorsal medulla. No hydrocephalus. 3. No evidence of hemorrhagic conversion. 4. Stable tiny infarct RIGHT cerebellum.
[2023-05-24] MEDS: multivitamin therapeutic Tablet 1 TAB PO (09:38)
[2023-05-24] MEDS: heparin 5,000 unit/mL INJ 1 mL 5000 UNIT SUBCUT (09:38)
[2023-05-24] MEDS: tamsulosin 0.4 mg Capsule PO (09:39)
[2023-05-24] MEDS: aspirin 81 mg EC Tablet PO (09:39)
[2023-05-24] MEDS: clopidogrel 75 mg Tablet PO (09:39)
[2023-05-24] MEDS: gabapentin 100 mg Capsule 200 MG PO (09:39)
[2023-05-24] MEDS: levothyroxine 75 mcg Tablet PO (09:39)
[2023-05-24] MEDS: finasteride 5 mg Tablet PO (09:39)
[2023-05-24] MEDS: folic acid 1 mg Tablet PO (09:40)
[2023-05-24] MEDS: amlodipine 5 mg Tablet PO (09:41)
--- NOTE | 2023-05-24 09:47 | P.DS_ITS ---
Discharge Providers Date of Admission: 05/19/23 17:42 Date of Discharge: May 24, 2023 Attending Provider at Admission: Elian Mcguire DO Attending Provider at Discharge: Jeremy Flores MD Consults: Neurology: Dr. Mackenzie Primary Care Provider: Reshma Feng MD Diagnoses at Discharge Discharge Diagnosis (1) Cerebrovascular accident (CVA) involving posterior circulation: Status: Acute (2) Hypertension: Status: Acute (3) Frontoparietal cerebral atrophy: Status: Acute (4) Cerebellar infarction: Status: Acute (5) Cerebrovascular disease: Status: Acute (6) Occlusion of left vertebral artery: Status: Acute Reason for Visit Reason for Visit: DIZZINESS. ZEPEDA Brief History: History as per HPI: Bryan Smith is a 77 year old male has been having dizzy spells for quite some time.? Today however he had a severe attack and was unable to walk.? Per the he was drifting to the right side.? He is dizzy with his eyes open just lying in bed.? He denies history of stroke or NV he has high blood pressure.? Denies smoking. In the ED CT head with CTA head and neck show a right A2 segment that shows a possible thrombus and there also appears the distal left KEYON is attenuated.? The left vertebral artery is occluded just beyond its origin.? Patient is admitted for stroke work-up and stroke prevention. Hospital Course Hospital Course Patient was admitted to the hospital further evaluation and management with possibility of CVA involving posterior circulation. He was started on dual antiplatelet therapy along with statins. MRI head was done which was consistent with bilateral cerebellar stroke right more than left along with occlusion of left vertebral artery at the origin. During hospitalization patient continued to have persistent dizziness though continue to work well with physical therapy. Repeat CT scan was done which was consistent with evolution of stroke but was concerning for mass effect secondary to edema at left brainstem. Neurology was consulted. Patient was started on antihypertensives for stricter blood pressure control. Patient dizziness continues to improve gradually. Edema was monitored with serial CT heads without contrast prior to discharge. Safe discharge plan was discussed in detail with the patient. He is to continue taking his oral medications as before. Oral dual antiplatelet therapy, statins, amlodipine has been added to his medication list along with meclizine as needed. He is to see neurology in 2 weeks. Physical Exam Narrative: GENERAL: The patie nt was well-nouris hed with a healthy appearance and ap propriately groome d.? MENTAL STATUS: Orientation was f ull to 10 of 10 qu estions of orienta tion.? Speech was fluent without wor d hesitation.? No difficulty followi ng a complex comma nd.? The affect wa s euthymic. CRANIA L NERVES: Visual a cuity was intact t o reading small pr int. Visual resendiz were full to conf rontation, direct and consensual. Ex traocular movement s were full withou t nystagmus. Both slow pursuit and s accadic eye moveme nts were normal. P ERRLA. Face was sy mmetric at rest an d with grimace.? F acial sensation wa s intact in all th ree distributions of the fifth crani al nerve bilateral ly to touch.? Hear ing was intact to loud spoken voice. Tongue and palate were midline at r est and with protr usion of the tongu e and elevation of the palate. Shoul ders were symmetri c at rest and with shoulder shrug. M OTOR: There was no drift of the exte nded arms. Fine mo vements in the chong ds were rapid and symmetric. Toe tap ping was rapid and symmetric. Power was 5/5 in all the muscles of all fo ur extremities yocasta alejandro individually.? Generalized weakn ess with no focali ty. SENSATION: Vib ratory sensation i ntact in the four extremities distal ly.? COORDINATION: He has a wide-bas ed but he is able to walk with a wal ker.? No appendicu lar ataxia on fing [id number]-vtltpd or zqgj-zimd-holl. DE EP TENDON REFLEXES : 2/4 throughout.? ? GAIT: He is abl e to stand and mar ch in place on the walker.? I did no t take him down th e silva but he says he has been walki ng. HEENT: Normoce phalic without dys morphic features. Conjunctivae were not injected and s clerae were nonict thiago. NECK: Caroti d upstroke was str carol bilaterally wi thout bruits. The thyroid was not en larged and there w ere no palpable ly mph nodes. CHEST: Clear to auscultat ion. CARDIOVASCULA R: The heart sound s were normal with out murmur or gall op. Regular rate a nd rhythm. 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 Discharge Data Studies Completed and Pending Completed Studies During Hospitalization Category Date Time Status CT head wo con* [id number] Routine Cat Scan 05/22/23 13:[address] head wo con* [id number] Routine Cat Scan 05/23/23 15:[address] head wo con* [id number] Routine Cat Scan 05/24/23 08:[address] head wo con* [id number] Stat Cat Scan 05/19/23 14:12 Completed CTA head neck [CT angio headneck* [id number]] Stat Cat Scan 05/19/23 15:51 Completed XR chest 1V portable [id number] Stat Exams 05/19/23 15:15 Completed MR angio head wo con [id number] Stat MRI 05/20/23 07:33 Completed MR angio neck w con* [id number] Stat MRI 05/20/23 07:35 Completed MR head wo con* [id number] Stat MRI 05/20/23 07:33 Completed CV. echo complete* [id number] Stat Ultrasound 05/20/23 06:00 Completed Radiology Impressions Head/Neck CTA 05/19/23 15:51 IMPRESSION: 1. The right A2 segment of the KEYON is faintly and intermittently opacified beyond its origin suspicious for possible thrombus. The distal left KEYON also appears mildly attenuated attenuated at the A3 segment level. Recommend clinical correlation. 2. The left V4 segment of the vertebral artery is reconstituted in its distal V3/proximal V4 segment likely from collaterals. IMPRESSION: 1. There is occlusion of the left vertebral artery just beyond its origin. The neck vessels are otherwise patent. 2. Previously reported mass in the tongue not well characterized by arterial phase imaging. Correlate clinically. REFERENCES: NASCET CRITERIA. The degree of stenosis in the cervical segment of the internal carotid artery is based on NASCET criteria. Normal is no stenosis. Mild is less than 50% stenosis. Moderate is 50-69% stenosis. Severe is 70% to 99% stenosis. Total occlusion is no detectable patent lumen. ADDENDUM: 05/19/23 [id number] THIS REPORT CONTAINS FINDINGS THAT MAY BE CRITICAL TO PATIENT CARE. The findings were verbally communicated via telephone conference with JENN Steward at 4:59 PM CDT on 05/19/2023. The findings were acknowledged and understood. The distal KEYON is beyond the A2 segments are tortuous and appear to cross making it difficult to distinguish the right from left-sided branches. The A2 segment vessel attenuation is again suspected to be predominantly right-sided. Head MRI 05/20/23 07:33 IMPRESSION: 1. Small to moderate-sized acute left cerebellar infarct. 2. Tiny additional bilateral cerebellar infarcts. Head MRA 05/20/23 07:33 IMPRESSION: No stenosis or occlusion. Neck MRA 05/20/23 07:35 IMPRESSION: Occlusion of the left vertebral artery at the origin, unchanged. REFERENCES: NASCET CRITERIA. The degree of stenosis in the cervical segment of the internal carotid artery is based on NASCET criteria. Normal is no stenosis. Mild is less than 50% stenosis. Moderate is 50-69% stenosis. Severe is 70% to 99% stenosis. Total occlusion is no detectable patent lumen. Laboratory Results WBC 5.59 10^3/uL (3.29-11.43) 05/23/23 05:10 RBC 4.69 10^6/uL (3.85-5.65) 05/23/23 05:10 Hgb 14.80 g/dL (11.27-16.99) 05/23/23 05:10 Hct 43.0 % (37-53) 05/23/23 05:10 MCV 91.7 fl (82-101) 05/23/23 05:10 MCH 31.6 pg (27-33) 05/23/23 05:10 MCHC 34.4 g/dL (30-55) 05/23/23 05:10 RDW 13.2 % (12.1-15.1) 05/23/23 05:10 Plt Count 215 10^3/cmm (157-399) 05/23/23 05:10 MPV 8.3 fL (7.4-10.4) 05/23/23 05:10 Neut % (Auto) 58.4 % 05/23/23 05:10 Lymph % (Auto) 27.0 % 05/23/23 05:10 [place] % (Auto) 12.9 % 05/23/23 05:10 Eos % (Auto) 0.9 % 05/23/23 05:10 Baso % (Auto) 0.4 % 05/23/23 05:10 Neut # (Auto) 3.27 10^3/uL (1.8-7.7) 05/23/23 05:10 Lymph # (Auto) 1.5 10^3/uL (0.8-4.8) 05/23/23 05:10 [place] # (Auto) 0.7 10^3/uL (0.2-0.9) 05/23/23 05:10 Eos # (Auto) 0.1 10^3/uL (0.0-0.8) 05/23/23 05:10 Baso # (Auto) 0.0 10^3/uL (0.0-0.1) 05/23/23 05:10 Nucleated RBC % (auto) 0 % 05/23/23 05:10 Nucleated RBCs # 0.0 /100WBC 05/23/23 05:10 D-Dimer 0.63 ug/mLFEU (0-0.59) H 05/19/23 14:02 Sodium 137 mmol/L (136-145) 05/23/23 05:10 Potassium 3.8 mmol/L (3.5-5.1) 05/23/23 05:10 Chloride 106 mmol/L (98-107) 05/23/23 05:10 Carbon Dioxide 21 mmol/L (22-29) L 05/23/23 05:10 Anion Gap 13.8 (5-19) 05/23/23 05:10 BUN 24 mg/dL (8-23) H 05/23/23 05:10 Creatinine 1.2 mg/dL (0.7-1.2) 05/23/23 05:10 GFR Calculation Not Reportable 05/23/23 05:10 Glucose 106 mg/dL (65-115) 05/23/23 05:10 Estimat Average Glucose 114 05/20/23 04:38 Hemoglobin A1c 5.6 % (4.0-6.0) 05/20/23 04:38 Calculated Osmolality 288 mOsm/kg (285-295) 05/23/23 05:10 Calcium 9.4 mg/dL (8.5-10.5) 05/23/23 05:10 Total Bilirubin 0.7 mg/dL (0.15-1.2) 05/23/23 05:10 AST 25 U/L (0-40) 05/23/23 05:10 ALT 21 U/L (0-41) 05/23/23 05:10 Alkaline Phosphatase 77 U/L (40-130) 05/23/23 05:10 Creatine Kinase 73 U/L (39-308) 05/19/23 14:02 NT-Pro-B Natriuret Pep 182 pg/mL (0-450) 05/19/23 14:02 Total Protein 6.5 g/dL (6.6-8.7) L 05/23/23 05:10 Albumin 4.0 g/dL (3.5-5.2) 05/23/23 05:10 Globulin 2.5 g/dL (1.3-4.6) 05/23/23 05:10 Triglycerides 130 mg/dL (0-150) 05/20/23 04:38 Cholesterol 191 mg/dL (0-200) 05/20/23 04:38 LDL Cholesterol, Calc 130 mg/dL (50-129) H 05/20/23 04:38 HDL Cholesterol 35 mg/dL (60-100) L 05/20/23 04:38 LDL/HDL Ratio 3.71 RATIO (0.00-3.22) H 05/20/23 04:38 Cholesterol/HDL Ratio 5.46 mg/dL (1.0-5.00) H 05/20/23 04:38 TSH 2.91 uIU/mL (0.27-4.20) 05/20/23 04:38 Vitals Last Vital Signs Temp 97.8 F 05/24/23 07:54 Pulse 84 05/24/23 07:54 Resp 16 05/24/23 07:54 BP 143/75 05/24/23 07:54 Pulse Ox 94 05/24/23 07:54 O2 Del Method Room Air 05/24/23 07:54 Discharge Plan Discharge Patient Disposition: Home Health Service Condition: Stable Prescriptions: New atorvastatin 40 mg Tablet 80 mg PO BEDTIME Qty: 60 0RF clopidogrel 75 mg Tablet 75 mg PO DAILY Qty: 30 0RF amlodipine 5 mg Tablet 5 mg PO DAILY Qty: 30 0RF aspirin 81 mg Tablet,Delayed Release (Dr/Ec) 81 mg PO DAILY Qty: 30 0RF meclizine 25 mg Tablet 50 mg PO Q6H PRN (Reason: Dizziness) 14 Days Qty: 20 0RF Continued trazodone 150 mg tablet 150 mg PO DAILY tamsulosin 0.4 mg capsule 0.4 mg PO DAILY finasteride [Proscar] 5 mg tablet 5 mg PO DAILY bisoprolol fumarate 5 mg tablet 10 mg PO DAILY gemfibrozil [Lopid] 600 mg tablet 300 mg PO BID folic acid 1 mg tablet 1 mg PO DAILY multivitamin Tablet 1 tab PO DAILY levothyroxine 50 mcg capsule 75 mcg PO DAILY gabapentin 600 mg Tablet See Rx Instructions .ROUTE .COMPLEX Rx Instructions: 300 mg orally in the morning and 600 mg in the evening Discharge Orders: Discharge Order (Routine); Ordered 05/24/23 Ordered By: Jeremy Flores Referrals: [facility] [Other] Olga Mackenzie MD [Physician] - 06/07/23 2:15 pm Reshma Feng MD [Primary Care Provider] - 05/24/23 1:20 pm Discharge Diet: Regular, Cardiac and Resume prior tube feeds Discharge Activity: Resume usual activity, Increase activity as tolerated and Oxygen as instructed Patient Instructions: Aspirin (By mouth), Meclizine (By mouth), Amlodipine (By mouth), Atorvastatin (By mouth), Clopidogrel (By mouth), Stroke (GEN), Opioid Safety, Stroke Stoplight Activity Restrictions/Additional Instructions: Continue taking your oral medications as before. Amlodipine which is a blood pressure medication is a nightly medication list along with dual antiplatelet therapy with aspirin and Plavix. Continue to check your blood pressure daily at home maintain a blood pressure diary. Please follow-up with neurology in 2 weeks. You can take meclizine as needed every 6 hours for dizziness. Discharge Attestations Time Spent in Discharge Care*: greater than 30 min Specific Discharge Activities: educating patient, educating and/or supporting family/caregiver, discussing with pcp/other providers, discussing with correctional casework specialist/social workers/dc planners, documenting/other paperwork and evaluating patient/reviewing data Status at Discharge: Cognitive status at discharge: cognitively intact , Behavioral status at discharge: cooperative , Functional status at discharge: independent ambulation , Overall status at discharge: patient is back to baseline Quality Metrics Clinical Quality Measures [ No reported AMI, CVA or VTE this stay] Coding Level of Care Code 05622 Total time (in minutes) for Discharge: 60 Diagnoses Cerebrovascular accident (CVA) involving posterior circulation I63.50 Hypertension I10 Frontoparietal cerebral atrophy G31.9 Cerebellar infarction I63.9 Cerebrovascular disease I67.9 Occlusion of left vertebral artery I65.02
[2023-05-24] MEDS: gemfibrozil 600 mg Tablet 300 MG PO (09:53)
[2023-05-24] MEDS: meclizine 25 mg tablet 50 MG PO (09:55)
--- NOTE | 2023-05-24 12:51 | PC.NURSE ---
Discussed discharge follow up appointments, new medications, continued medications and Stroke booklet with patient and spouse. Verbalized understanding.
--- NOTE | 2023-05-24 12:58 | PC.SOCIAL ---
IMM updated Updated pt & on IMM. No questions voiced. Provided pt a copy. Initialed, dated, & timed copy in chart.
== END 2023-05-24 12:16 | disposition home health service (06) | DRG 64 ==
LOC: ER 17:07 → MEDSURG 18:54
PROVIDERS: Admitting Provider Internal Medicine; Emergency Provider Family Medicine; PCP Family Medicine; Visit Provider Student in an Organized Health Care Education/Training Program
DX: I63.212 Cerebral infarction due to unspecified occlusion or stenosis of left vertebral artery (principal); I63.543 Cerebral infarction due to unspecified occlusion or stenosis of bilateral cerebellar arteries; I10 Essential (primary) hypertension; N40.0 Benign prostatic hyperplasia without lower urinary tract symptoms; M17.0 Bilateral primary osteoarthritis of knee
CPT/HCPCS: 36415; 70450; 70496; 70498; 70544; 70548; 70551; 71045; 80048; 80053; 80061; 82550; 83036; 83880; 84443; 85025; 85049; 85378; 93005; 93306; 96372; 96374; 96375; 97110; 97116; 97161; 97530; 99285; A9577; J0360; J1644; J2405; J2765; J7030; J8597; Q9967

== ENCOUNTER → 2023-06-13 14:24 | Outpatient (BNVA) | payer OTHER, SELFPAY | PROVIDERS: PCP Family Medicine; Visit Provider Specialist | DX: I63.549 Cerebral infarction due to unspecified occlusion or stenosis of unspecified cerebellar artery (principal); I63.529 Cerebral infarction due to unspecified occlusion or stenosis of unspecified anterior cerebral artery; F03.90 Unspecified dementia, unspecified severity, without behavioral disturbance, psychotic disturbance, mood disturbance, and anxiety | CPT/HCPCS: 99205 ==

== ENCOUNTER → 2023-08-23 10:30 | Outpatient (BNVA) | payer OTHER, SELFPAY | PROVIDERS: PCP Family Medicine; Visit Provider Nurse Practitioner | DX: M17.11 Unilateral primary osteoarthritis, right knee (principal); M25.562 Pain in left knee; Z96.653 Presence of artificial knee joint, bilateral | CPT/HCPCS: 73560; 73565; 99214 ==

== ENCOUNTER → 2023-11-14 13:42 | Outpatient (BNVA) | payer OTHER, SELFPAY | PROVIDERS: PCP Physician Assistant; Visit Provider Specialist | DX: I63.549 Cerebral infarction due to unspecified occlusion or stenosis of unspecified cerebellar artery (principal); I63.529 Cerebral infarction due to unspecified occlusion or stenosis of unspecified anterior cerebral artery; I63.50 Cerebral infarction due to unspecified occlusion or stenosis of unspecified cerebral artery; I65.02 Occlusion and stenosis of left vertebral artery; I63.542 Cerebral infarction due to unspecified occlusion or stenosis of left cerebellar artery | CPT/HCPCS: 99214 ==

== ENCOUNTER 2023-11-21 08:54 | Outpatient (CLI) | payer OTHER, SELFPAY ==
[2023-11-21 09:00] VITALS: BMI 32.6
--- NOTE | 2023-11-21 09:13 | ECG_ITS ---
[facility] Test Date: 2023-11-21 Pat Name: Bryan Smith Department: Room: Gender: Male Barrel Turner: : 1945 Requested By: Olga Mackenzie Order Number: [id number] Quinn MD: Joseluis Gomez M.D. Interpretive Statements NAME OF STUDY: LEXISCAN SESTAMIBI STRESS TEST INDICATION: [CVA] Procedure: At the baseline, the blood pressure was 160/85 mmHg with a heart rate of 55 bpm. The electrocardiogram showed sinus bradycardia, normal axis with normal ST and T's. The Lexiscan was infused over a period of 20 seconds. A total of 0.4 mg of Lexiscan was infused. The stress phase was continued for a total of 5 minutes. Heart rate was at the end of stress phase was 69 bpm and a blood pressure of 156/78 mmHg. The EKG at the peak infusion revealed normal sinus rhythm with no significant ST-T wave changes. Sestamibi was injected 20 seconds after the Lexiscan infusion. Blood pressure at the end of recovery phase was 138/73 mmHg with a heart rate of 68 bpm. Conclusion: 1. Normal EKG response to Lexiscan infusion 2. No Lexiscan induced chest pain or cardiac arrhythmia. 3. Normal blood pressure and heart rate response. 4. Sestamibi/sestamibi perfusion scan pending; see separate report. Electronically Signed On 12-11-2023 18:37:54 CDT by Joseluis Gomez M.D. [email or web address]
--- NOTE | 2023-11-21 09:14 | NMCV_ITS ---
NM ty perf SPECT r/s* [id number] Bryan Smith Age: 77 Gender: M : 1945 Exam Date: 11/21/2023 10:09 Ordering Phys: Olga Mackenzie MD Technologist: SHANEL Donato Exam Location: [facility] Indications: CEREBRAL INFARCT STRESS TEST Please see separate stress test report in [facility] for full findings IMAGE PROTOCOL Rest/Stress 1 Lexiscan Day Radiopharmaceutical Dose (mCi) Administration Site Administered by Rest: Tc-99m 10.6 IV SHANEL Arreola Sestamibi Stress:Tc-99m 32.8 IV SHANEL Arreola Sestamibi Rest: 21-Nov-2023 60 Discovery 630 Stress: 21-Nov-2023 30 Discovery 630 0.4mg Lexiscan. Images obtained in supine and prone position. SPECT RESULTS Technical Quality: Excellent Raw Data Analysis: Normal Image Corrections: No attenuation or motion correction applied Summed Stress Score: 0 Summed Rest Score: 1 Summed Difference Score: 0 PERFUSION FINDINGS SPECT images demonstrate homogeneous tracer distribution throughout the myocardium. FUNCTIONAL RESULTS (calculated via Gated SPECT) Stress Image LV EF (%): 71 Stress EDV (mL):86 TID: 1.08 Stress ESV (mL):25 FUNCTIONAL FINDINGS: There is normal left ventricular systolic function. IMPRESSIONS 1. Normal myocardial perfusion imaging with no evidence of ischemia 2. LV systolic function is normal Joseluis Gomez MD (Electronically Signed) Final Date: 23 Nov 2023 10:54 S
[2023-11-21] MEDS: regadenoson 0.4 Mg/5 ml Syringe 0.400000000000000022 MG IVP (10:45)
[2023-11-21 11:01] VITALS: BP 136/84; PULSE 61
== END 2023-11-21 08:55 | disposition home or self-care (01) ==
PROVIDERS: PCP Physician Assistant; Visit Provider Specialist
DX: I62.9 Nontraumatic intracranial hemorrhage, unspecified (principal)
CPT/HCPCS: 36415; 78452; 93017; 96374; A9500; J2785

== ENCOUNTER → 2024-03-27 08:16 | Outpatient (BNVA) | payer OTHER, SELFPAY | PROVIDERS: PCP Physician Assistant; Visit Provider Specialist | DX: I63.529 Cerebral infarction due to unspecified occlusion or stenosis of unspecified anterior cerebral artery; I63.542 Cerebral infarction due to unspecified occlusion or stenosis of left cerebellar artery; G30.9 Alzheimer's disease, unspecified; F02.80 Dementia in other diseases classified elsewhere, unspecified severity, without behavioral disturbance, psychotic disturbance, mood disturbance, and anxiety | CPT/HCPCS: 96116; 99214 ==

== ENCOUNTER → 2024-06-26 09:32 | Outpatient (BNVA) | payer MEDICARE, SELFPAY | PROVIDERS: PCP Physician Assistant; Visit Provider Specialist | DX: I63.529 Cerebral infarction due to unspecified occlusion or stenosis of unspecified anterior cerebral artery; Z09 Encounter for follow-up examination after completed treatment for conditions other than malignant neoplasm; I63.542 Cerebral infarction due to unspecified occlusion or stenosis of left cerebellar artery; G30.9 Alzheimer's disease, unspecified; F02.80 Dementia in other diseases classified elsewhere, unspecified severity, without behavioral disturbance, psychotic disturbance, mood disturbance, and anxiety | CPT/HCPCS: 99214 ==